=== PATIENT | male | born 1970 | race Caucasian/White ===

== ENCOUNTER 2017-06-27 16:50 | Emergency (ER) | payer BC, SELFPAY | END 2017-06-27 18:47 | disposition home or self-care (01) | PROVIDERS: Emergency Provider Nurse Practitioner Family; Family Provider Internal Medicine; Visit Provider Nurse Practitioner Family | DX: G43.709 Chronic migraine without aura, not intractable, without status migrainosus (principal) | CPT/HCPCS: 96372; 99202 ==

== ENCOUNTER 2017-07-30 08:15 | Outpatient (RCR) | payer BC, SELFPAY ==
--- NOTE | 2017-07-30 09:33 | HMH.PTOPEV ---
Rehab Outpatient Evaluation Rehab OP Evaluation Start: 07/30/17 09:21 Freq: Status: Active Protocol: Document 07/30/17 09:22 RUDI (Rec: 07/30/17 09:33 PHORELSY [id number]) Electronically Signed By Josue Quiroz, PT 07/30/17 09:22 Outpatient Therapy Subjective History Subjective History Pt presents with c/o pain in right side low back x ~ 1 wk. He reports, I slipped a little bit on some ice while I was turning, but I didn't fall and it didn't start to hurt until later that day. Pt c/o difficulty with transfers from supine to sit and reports increased pain with any mobility. He reports prior cervical spine fusion as only significant PMH. Chief Complaint Pain Symptom Type Ache Throb Sharp Burning Symptoms Relieved By Rest/Positioning Symptoms Aggravated By Bending/Stooping Twisting Walking Prior Functional Limitations None Current Functional Limitations Sleeping Walking Bending/Stooping Symptom Description Constant but Variable Level of pain today (0-10) 2 Pain scale - at its worst (0-10) 10 Lumbopelvic Eval Gait Observation General Gait Pattern Observation Antalgic Gait Range of Motion Lumbar Spine Active Flexion Range of 0-35 Motion (degrees) Lumbar Spine Active Extension Range of 0-15 Motion (degrees) Left Lumbar Spine Lateral Flexion Active 0-20 Range of Motion (degrees) Right Lumbar Spine Lateral Flexion 0-15 Active Range of Motion (degrees) Lumbar Spine ROM Limitations Soft Tissue Tightness Pain Manual Muscle Test Bilateral Knee Extension Strength Grade 5 Normal Knee Flexion Strength Grade 5 Normal Hip Flexion Strength Grade 5 Normal Hip Abduction Strength Grade 5 Normal Hip Adduction Strength Grade 5 Normal Hip External Rotation Strength Grade 5 Normal Hip Internal Rotation Strength Grade 5 Normal Hip Extension Strength Grade 5 Normal Extensor Hallucis Longus Strength Grade 5 Normal Ankle Dorsiflexion Strength Grade 5 Normal Gastronemius/Soleus Strength Grade 5 Normal DTR Rt Patellar 2+ Lt Patellar 2+ Rt Gastroc/Soleus
== END 2017-07-30 08:16 | disposition home or self-care (01) ==
LOC: PT 08:15
PROVIDERS: Family Provider Internal Medicine; PCP Internal Medicine; Visit Provider Internal Medicine
DX: M54.41 Lumbago with sciatica, right side (principal)
CPT/HCPCS: 97010; 97014; 97035; 97110; G0283

== ENCOUNTER 2017-08-05 16:48 | Emergency (ER) | payer BC, SELFPAY ==
[2017-08-05 17:03] VITALS: BP 126/63; PULSE 87; RESP 18; TEMP 36.7; O2SAT 96; BMI 36.6
[2017-08-05 17:18] VITALS: BP 137/75; PULSE 91; RESP 18; TEMP 36.6; O2SAT 100; BMI 27.0
--- NOTE | 2017-08-05 17:27 | HMH.EDUTC ---
[facility] [place] Disposition Clinical Impression: Mild dehydration Disposition: Home, Self-Care Condition on Discharge: Good Instructions: Influenza, DI for Nausea -- Adult, DI for Dehydration -- Adult Additional Instructions: ? Lots of rest ? Increase Fluids water, Gatorade, powerade, pedialyte,if /toddler/child ? Alternate Tylenol and / or ibuprofen as discussed for fever, aches, chills x 24 hours without medication for symptoms ? Follow up IMMEDIATELY for new or worsening Symptoms OR no noticeable improvement over the next 48-72 hours, 911 for difficulty or breathing ? You area contagious until no fever, aches, chills for 24 hours with medication for symptoms Prescriptions: Promethazine/Dextromethorphan [Promethazine-Dm Syrup] 5 ml PO Q4H PRN #200 syrup PRN Reason: Cough Referrals: Soren Elder [Primary Care Provider] - Time of Disposition: 18:26 Medical Decision Making - Medical Records Medical records reviewed: Yes: I reviewed the patient's medical records. Vital Signs: 08/05/17 17:03 08/05/17 17:18 Temperature 98.1 F 97.9 F Temperature Source Temporal Artery Scan Temporal Artery Scan Pulse Rate [Right Brachial] 87 91 H Respiratory Rate 18 18 Blood Pressure [Right Arm] 126/63 137/75 Blood Pressure Mean [Right Arm] 84 95 Blood Pressure Source [Right Arm] Automatic Cuff Automatic Cuff Blood Pressure Position [Right Arm] Sitting Sitting 02 Sat by Pulse Oximetry 96 100 Oxygen Delivery Method Room Air Room Air Orders (Tests/Meds): ED MEDICATIONS Generic Name Dose Route Start Last Admin Trade Name Freq PRN Reason Stop Dose Admin Sodium Chloride 500 mls @ 500 mls/hr 08/05/17 17:45 08/05/17 17:54 Sod Chloride 0.9% 500ml Bag IV 08/05/17 18:44 500 mls/hr .Q1H RACHAEL Administration - Spenser Inquiry Pt receiving controlled substance: No Spenser was queried for this patient: No - Reevaluation(s) Time: 18:21 (Patient bolus of NS almost complete Patient state that he feels alot better State that he would like something for cough and feels like he is ready to go home) Reevaluation #1: Mucous membranes moist, now able to urinate without difficulty patient ready to be discharged home [facility] [place] HPI - General Stated complaint: Has Flu/Has not Urinated Mode of Arrival: Ambulatory Source of Information: Patient Limitations: No Limitations Description of Symptoms (Recalled from Triage Doc. by RN): DX WITH FLU THURSDAY, STATES IS NOT URINATING HEENT Symptoms (Recalled from RN notes): Yes Resp Symptoms (Recalled from RN notes): No Skin Symptoms (Recalled from RN notes): No MS Symptoms (Recalled from RN notes): No Functional Status (Recalled from RN notes): N - History of Present Illness Provider Complaint: Patient state that he was diagnosed with the flu on Thursday State that he has been drinking fluids but not urinating like he thinks he should be States that he called his family doctor and they told him to come in and get some IV fluids to see if that would help him to feel better - Related Data Previous Rx's Medication Instructions Recorded Promethazine/Dextromethorphan 5 ml PO Q4H PRN #200 syrup 08/05/17 [Promethazine-Dm Syrup] Allergies Allergy/AdvReac Type Severity Reaction Status Date / Time No Known Allergies Allergy Verified 08/05/17 17:22 - Worker's Comp Is this a Worker's Comp case?: No [facility] History I have reviewed the patient's past medical history: Yes - *Social History Smoking Status: Former smoker Alcohol Intake: never - Psychiatric History Expresses thoughts of harming self/others: None Suicide Plan Description: No Plan ROS Obtained: Yes All systems reviewed & no additional complaints Physical Exam - General General appearance: alert, in no apparent distress - ENT ENT exam: Present: normal exam, normal oropharynx, mucous membranes moist, TM's normal bilaterally, normal external ear exam - Respiratory Respiratory exam: Present: normal lung sounds b
--- NOTE | 2017-08-05 17:30 | ED_ITS ---
[facility] [place] Disposition Clinical Impression: Mild dehydration Disposition: Home, Self-Care Condition on Discharge: Good Instructions: Influenza, DI for Nausea -- Adult, DI for Dehydration -- Adult Additional Instructions: ? Lots of rest ? Increase Fluids water, Gatorade, powerade, pedialyte,if /toddler/child ? Alternate Tylenol and / or ibuprofen as discussed for fever, aches, chills x 24 hours without medication for symptoms ? Follow up IMMEDIATELY for new or worsening Symptoms OR no noticeable improvement over the next 48-72 hours, 911 for difficulty or breathing ? You area contagious until no fever, aches, chills for 24 hours with medication for symptoms Prescriptions: Promethazine/Dextromethorphan [Promethazine-Dm Syrup] 5 ml PO Q4H PRN #200 syrup PRN Reason: Cough Referrals: Soren Elder [Primary Care Provider] - Time of Disposition: 18:26 Medical Decision Making - Medical Records Medical records reviewed: Yes: I reviewed the patient's medical records. Vital Signs: 08/05/17 17:03 08/05/17 17:18 Temperature 98.1 F 97.9 F Temperature Source Temporal Artery Scan Temporal Artery Scan Pulse Rate [Right Brachial] 87 91 H Respiratory Rate 18 18 Blood Pressure [Right Arm] 126/63 137/75 Blood Pressure Mean [Right Arm] 84 95 Blood Pressure Source [Right Arm] Automatic Cuff Automatic Cuff Blood Pressure Position [Right Arm] Sitting Sitting 02 Sat by Pulse Oximetry 96 100 Oxygen Delivery Method Room Air Room Air Orders (Tests/Meds): ED MEDICATIONS Generic Name Dose Route Start Last Admin Trade Name Freq PRN Reason Stop Dose Admin Sodium Chloride 500 mls @ 500 mls/hr 08/05/17 17:45 08/05/17 17:54 Sod Chloride 0.9% 500ml Bag IV 08/05/17 18:44 500 mls/hr .Q1H RACHAEL Administration - Spenser Inquiry Pt receiving controlled substance: No Spenser was queried for this patient: No - Reevaluation(s) Time: 18:21 (Patient bolus of NS almost complete Patient state that he feels alot better State that he would like something for cough and feels like he is ready to go home) Reevaluation #1: Mucous membranes moist, now able to urinate without difficulty patient ready to be discharged home [facility] [place] HPI - General Stated complaint: Has Flu/Has not Urinated Mode of Arrival: Ambulatory Source of Information: Patient Limitations: No Limitations Description of Symptoms (Recalled from Triage Doc. by RN): DX WITH FLU THURSDAY, STATES IS NOT URINATING HEENT Symptoms (Recalled from RN notes): Yes Resp Symptoms (Recalled from RN notes): No Skin Symptoms (Recalled from RN notes): No MS Symptoms (Recalled from RN notes): No Functional Status (Recalled from RN notes): N - History of Present Illness Provider Complaint: Patient state that he was diagnosed with the flu on Thursday State that he has been drinking fluids but not urinating like he thinks he should be States that he called his family doctor and they told him to come in and get some IV fluids to see if that would help him to feel better - Related Data Previous Rx's Medication Instructions Recorded Promethazine/Dextromethorphan 5 ml PO Q4H PRN #200 syrup 08/05/17 [Promethazine-Dm Syrup] Allergies Allergy/AdvReac Type Severity Reaction Status Date / Time No Known Allergies Allergy Verified 08/05/17 17:22 - Worker's Comp Is t
== END 2017-08-05 18:39 | disposition home or self-care (01) ==
LOC: ER 17:01 → UTC 17:09 → ER 17:09 → UTC 17:09
PROVIDERS: Emergency Provider Nurse Practitioner; Family Provider Internal Medicine; PCP Internal Medicine
DX: E86.0 Dehydration (principal); J10.1 Influenza due to other identified influenza virus with other respiratory manifestations
CPT/HCPCS: 99202

== ENCOUNTER → 2019-11-15 15:35 | Outpatient (CLI) | payer BC, SELFPAY ==
--- NOTE | 2019-11-15 15:41 | XR_ITS ---
PROCEDURE: XR HAND RT MIN 3V CLINICAL INDICATION: RIGHT WRIST AND HAND PAIN Posttraumatic pain COMPARISON: No exams were available for comparison FINDINGS: No fracture or dislocation. No lytic or blastic change. There is normal mineralization. The joint spaces are well-preserved. No significant degenerative/arthritic changes. No erosive changes evident. Other findings:There does appear to be a nondisplaced triquetrum avulsion fracture of wrist IMPRESSION: Negative hand. Nondisplaced triquetrum avulsion fracture Dictated by: Jan Hanna MD 11/15/2019 17:06 Electronically signed by Jan Hanna MD in [place] 11/15/2019 17:06
--- NOTE | 2019-11-15 15:41 | XR_ITS ---
PROCEDURE: XR WRIST RT MIN 3V CLINICAL INDICATION: RIGHT WRIST AND HAND PAIN Posttraumatic COMPARISON: No exams were available for comparison FINDINGS: There is a small calcific density along the dorsal mid aspect the wrist suspicious for an avulsion of the triquetrum which is nondisplaced. IMPRESSION: Nondisplaced triquetrum avulsion fracture Dictated by: Jan Hanna MD 11/15/2019 17:05 Electronically signed by Jna Hanna MD in [place] 11/15/2019 17:05
== END ==
PROVIDERS: PCP Internal Medicine; Visit Provider Internal Medicine
DX: M25.531 Pain in right wrist (principal)
CPT/HCPCS: 73110; 73130

== ENCOUNTER 2020-03-13 16:35 | Emergency (ER) | payer BC, SELFPAY ==
[2020-03-13 17:06] VITALS: BP 128/88; PULSE 71; RESP 20; TEMP 36.9; O2SAT 97; BMI 27.7
[2020-03-13 17:14] LABS: UTC Influenza A Antigen Negative (Negative); UTC Strep Screen (Rapid) Negative (Negative)
[2020-03-13 17:15] LABS: UTC Influenza B Antigen Negative (Negative)
--- NOTE | 2020-03-13 17:24 | HMH.EDUTC ---
[facility] [place] Disposition Clinical Impression: Viral syndrome, Bronchitis Disposition: Home, Self-Care Condition on Discharge: Good Instructions: DI for Viral Syndrome, Preventing the Spread of Coronavirus Discharge Instructions Additional Instructions: Drink plenty of fluids. Take tylenol or ibuprofen for pain or fever. Take the medications as directed. Follow up with your regular doctor. GO TO THE ER FOR ANY WORSENING SYMPTOMS FOLLOW THE DIRECTIONS ON THE COVID-19 HAND OUT THAT WE GAVE YOU REGARDING SELF-ISOLATION UNTIL YOU KNOW YOUR COVID-19 RESULTS Prescriptions: Azithromycin [Z-Ricardo 250mg Tab*] 250 mg PO UD DOSE PK #6 tab Transmission Status: Received by [facility] Referrals: Soren Elder [Primary Care Provider] - Forms: Work/School Release Time of Disposition: 17:27 Medical Decision Making - Medical Records Medical records reviewed: No: I reviewed the patient's medical records. - Spenser Inquiry Pt receiving controlled substance: No Vital Signs: 03/13/20 17:06 03/13/20 17:33 Temperature 98.4 F 98.4 F Temperature Source Oral Pulse Rate 71 Pulse Rate [Right Brachial] 71 Respiratory Rate 20 20 Blood Pressure 128/88 Blood Pressure [Right Arm] 128/88 Blood Pressure Mean [Right Arm] 101 Blood Pressure Source [Right Arm] Automatic Cuff Blood Pressure Position [Right Arm] Sitting 02 Sat by Pulse Oximetry 97 Oxygen Delivery Method Room Air - Lab Data Lab Results 03/13/20 16:50: Influenza Type A Ag Negative, Influenza Type B Ag Negative 03/13/20 16:50: Strep Scn Rapid Clinic Negative Orders (Tests/Meds): ORDERS Category Date Time Status Covid-19 Nasal PCR Sendout [facility] Stat Lab 03/13/20 17:30 Received Strep Screen Confirmation Stat Micro 03/13/20 16:50 Received [facility] [place] HPI - General Stated complaint: V/D, cough, body aches, chills, sweats, RODRIGUEZ Time Seen by Provider: 03/13/20 17:10 Mode of Arrival: Ambulatory Source of Information: Patient Limitations: No Limitations Description of Symptoms (Recalled from Triage Doc. by RN): PATIENT C/O BODY ACHES, CHILLS, BACK PAIN, COUGH, HEADACHE, NASAL DRAINAGE, AND N/V/D SINCE THURSDAY NIGHT HEENT Symptoms (Recalled from RN notes): Yes Resp Symptoms (Recalled from RN notes): Yes Skin Symptoms (Recalled from RN notes): No MS Symptoms (Recalled from RN notes): No Functional Status (Recalled from RN notes): WNL - History of Present Illness Provider Complaint: He c/o 3 days of feeling bad, dry cough, chilling and body aches. He has been exposed to COVID-19 both at work and possibly at home. - Related Data Previous Rx's Medication Instructions Recorded Azithromycin [Z-Ricardo 250mg Tab*] 250 mg PO UD DOSE PK #6 tab 03/13/20 Allergies Allergy/AdvReac Type Severity Reaction Status Date / Time No Known Allergies Allergy Verified 09/24/19 14:50 - Worker's Comp Is this a Worker's Comp case?: No [facility] History - Hepatitis A Screen Drug use history?: No High risk sexual behaviors?: No History of sexually transmitted infection?: No Currently employed?: No 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 No Do you have indoor plumbing?: Yes Do you have electricity?: Yes Attestation statement:: This patient has been screened for Hepatitis A risk factors. I have reviewed the patient's past medical history: Yes Medical History: Reports:: Anxiety, Depression, Kidney Stones (Patient has a history of multiple stones in the past), Migraine Denies:: Cancer, Diabetes Mellitus Type 1, Diabetes Mellitus Type 2, MRSA Other Surgeries: Yes: Other Amputation: No Comment: spine - Social History Smoking Status: Current every day smoker Tobacco Type: smokeless tobacco Alcohol Intake: never Occupational Status: other - Psychiatric History Pschychiatric History:: Reports:: Anxiety, Depression Family Hx:: No significant family history ROS Obtained: Yes All systems reviewed & no additional complaints - Constitutional Constitutional: Reports chill
[2020-03-13 17:33] VITALS: BP 128/88; PULSE 71; RESP 20; TEMP 36.9; O2SAT 97
[2020-03-15 13:59] LABS: Covid-19 Nasal PCR Sendout Lex NOT DETECTED
== END 2020-03-13 17:35 | disposition home or self-care (01) ==
PROVIDERS: Emergency Provider Nurse Practitioner Family; PCP Internal Medicine
DX: B34.9 Viral infection, unspecified (principal); J20.9 Acute bronchitis, unspecified; Z20.828 Contact with and (suspected) exposure to other viral communicable diseases; Z87.442 Personal history of urinary calculi; F41.8 Other specified anxiety disorders; G43.709 Chronic migraine without aura, not intractable, without status migrainosus; F17.290 Nicotine dependence, other tobacco product, uncomplicated
CPT/HCPCS: 87804; 87880; 99202; U0004

== ENCOUNTER → 2020-05-18 15:37 | Outpatient (CLI) | payer BC, SELFPAY ==
--- NOTE | 2020-05-18 15:41 | XR_ITS ---
PROCEDURE: XR ELBOW RT MIN 3V CLINICAL INDICATION: RT ELBOW PAIN COMPARISON: CR ELBL3 ELBOW-LT-3 VIEWS from 01/02/2013 FINDINGS: No fracture or dislocation. No lytic or blastic change. There is normal mineralization. The joint spaces are well-preserved. No significant degenerative/arthritic changes. No erosive changes evident. Other findings:None. IMPRESSION: No acute findings. Dictated by: Jan Hanna MD 05/18/2020 15:52 Jan Hanna MD in [place] 05/18/2020 15:52
== END ==
PROVIDERS: PCP Internal Medicine; Visit Provider Internal Medicine
DX: M25.522 Pain in left elbow (principal)
CPT/HCPCS: 73080

== ENCOUNTER 2020-06-02 19:35 | Emergency (ER) | payer BC, SELFPAY ==
[2020-06-02 20:30] VITALS: BP 119/77; PULSE 65; RESP 18; TEMP 36.7; O2SAT 98; BMI 27.8
--- NOTE | 2020-06-02 20:35 | HMH.EDUTC ---
[facility] [place] Impression: Exposure to COVID-19 virus, Encounter for laboratory testing for COVID-19 virus Disposition: Home, Self-Care Condition on Discharge: Good Instructions: Preventing the Spread of Coronavirus Discharge Instructions, DI for Fever (Symptom) -- Adult Additional Instructions: *Monitor Temp, Over the counter Motrin or Tylenol as directed/as needed Tylenol every 4 hours and Motrin every 6 hours (as long as your family doctor has told you that you can take it) for fever or pain. and straight to ER if unable to lower temp less than 101.0 after medication given *Warm salt water gargles may help to soothe the throat *Throat Lozenges *Warm fluids like tea with honey may help to soothe the throat *Sleep elevated *Humidifier/Vaporizer Follow up IMMEDIATELY for new or worsening symptoms or no Noticeable improvement over the next 48-72 hours. 911 for difficulty breathing or swallowing You was tested for today for COVID19 your test result should be back in the next 24-48 hours, you may call to the [facility] later today or tomorrow to see if your test results are back and the result [phone] [facility] hours are 9am-9pm You was given a handout with instructions for Self Quarantine and Self isolation for while you wait on test results and what to do if they are positive If you are positive the Health Dept will be contacting you also Referrals: Soren Elder [Primary Care Provider] - As needed Forms: Work/School Release Time of Disposition: 20:39 Medical Decision Making - Spenser Inquiry Pt receiving controlled substance: No Spenser was queried for this patient: No Vital Signs: 06/02/20 20:30 Temperature 98.0 F Temperature Source Oral Pulse Rate [Radial] 65 Respiratory Rate 18 Blood Pressure [Right Arm] 119/77 Blood Pressure Mean [Right Arm] 91 Blood Pressure Source [Right Arm] Automatic Cuff Blood Pressure Position [Right Arm] Sitting 02 Sat by Pulse Oximetry 98 Oxygen Delivery Method Room Air Orders (Tests/Meds): ORDERS Category Date Time Status Covid-19 Nasal PCR ([facility]) Routine Lab 06/02/20 20:15 Received [facility] [place] - General Stated complaint: cOVID TEST wEAKNESS,bODY PAIN Time Seen by Provider: 06/02/20 20:35 Mode of Arrival: Ambulatory Source of Information: Patient Limitations: No Limitations Description of Symptoms (Recalled from Triage Doc. by RN): WEAK JOINT PAIN, COVID EXPOSURE HEENT Symptoms (Recalled from RN notes): Yes Resp Symptoms (Recalled from RN notes): No Skin Symptoms (Recalled from RN notes): No MS Symptoms (Recalled from RN notes): No Functional Status (Recalled from RN notes): WNL - History of Present Illness Provider Complaint: Patient state that he was recently exposed to COVID by his father and his father in laws girlfriend State that he has been in quarnatine and he just recently got out but for last couple of days he has been having body aches, chills, and not feeling well State that he came in to get tested for COVID - Related Data Previous Rx's Medication Instructions Recorded Azithromycin [Z-Ricardo 250mg Tab*] 250 mg PO UD DOSE PK #6 tab 03/13/20 Allergies Allergy/AdvReac Type Severity Reaction Status Date / Time No Known Allergies Allergy Verified 09/24/19 14:50 - Worker's Comp Is this a Worker's Comp case?: No [facility] History - Hepatitis A Screen Drug use history?: No High risk sexual behaviors?: No History of sexually transmitted infection?: No Currently employed?: No 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 No Do you have indoor plumbing?: Yes Do you have electricity?: Yes Attestation statement:: This patient has been screened for Hepatitis A risk factors. I have reviewed the patient's past medical history: Yes Medical History: Reports:: Anxiety, Depression, Kidney Stones (Patient has a history of multiple stones in the past), Migraine Denies:: Cancer, Diabetes Mellitus Type 1, Diabetes Mellitus Type 2, MRSA Other Surgeries: Yes: Other Amputatio
[2020-06-02 21:02] VITALS: BP 119/77; PULSE 65; RESP 18; TEMP 36.7; O2SAT 98
--- NOTE | 2020-06-02 23:34 | PC.NURSE ---
+ COVID results reported
--- NOTE | 2020-06-03 10:25 | PC.NURSE ---
Attempted to call patient regarding covid results. No answer, message left.
--- NOTE | 2020-06-03 12:02 | PC.NURSE ---
PT NOTIFIED OF POSITIVE COVID RESULTS
== END 2020-06-02 21:03 | disposition home or self-care (01) ==
PROVIDERS: Emergency Provider Nurse Practitioner; PCP Internal Medicine
DX: U07.1 COVID-19 (principal); F41.8 Other specified anxiety disorders; Z87.442 Personal history of urinary calculi
CPT/HCPCS: 99201; U0003

== ENCOUNTER 2021-01-07 16:54 | Emergency (ER) | payer BC, SELFPAY ==
[2021-01-07 16:55] VITALS: BP 136/89; PULSE 61; RESP 19; TEMP 36.5; O2SAT 99; BMI 27.1
--- NOTE | 2021-01-07 17:17 | HMH.EDUTC ---
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 and take as directed if your headache comes back Return if needed Straight to ER if any life threatening symptoms or worse headache of your life Prescriptions: Ondansetron [Zofran 4mg ODT] 4 mg PO TIDP PRN #6 tab PRN Reason: Nausea Prescription Printed Referrals: Soren Elder [Primary Care Provider] - As needed Time of Disposition: 17:44 Medical Decision Making - Spenser Inquiry Pt receiving controlled substance: No Spenser was queried for this patient: No Vital Signs: 01/07/21 16:55 Temperature 97.7 F Temperature Source Oral Pulse Rate [Right Brachial] 61 Respiratory Rate 19 Blood Pressure [Right Arm] 136/89 Blood Pressure Mean [Right Arm] 104 Blood Pressure Source [Right Arm] Automatic Cuff Blood Pressure Position [Right Arm] Sitting 02 Sat by Pulse Oximetry 99 Oxygen Delivery Method Room Air Orders (Tests/Meds): ED MEDICATIONS Discontinued Medications Generic Name Dose Route Start Last Admin Trade Name Freq PRN Reason Stop Dose Admin Diphenhydramine HCl 25 mg 01/07/21 17:21 Diphenhydramine 50mg/Ml Vial IM 01/07/21 17:22 ONCE ONE Ketorolac Tromethamine 60 mg 01/07/21 17:21 Ketorolac 60mg/2ml Vial IM 01/07/21 17:22 ONCE ONE Ondansetron HCl 4 mg 01/07/21 17:21 Ondansetron 4mg Odt SL 01/07/21 17:22 ONCE ONE Medical Decision Narrative: Patient reports that migraine is better and starting to ease off patient dc'd home with family [facility] [place] HPI - General Stated complaint: RODRIGUEZ Time Seen by Provider: 01/07/21 17:17 Mode of Arrival: Ambulatory Source of Information: Patient Limitations: No Limitations Description of Symptoms (Recalled from Triage Doc. by RN): PATIENT C/O MIGRAINE WITH VOMITING X 2 DAYS HEENT Symptoms (Recalled from RN notes): Yes Resp Symptoms (Recalled from RN notes): No Skin Symptoms (Recalled from RN notes): No MS Symptoms (Recalled from RN notes): No Functional Status (Recalled from RN notes): WNL - History of Present Illness Provider Complaint: Patient states that he takes migraine medication when he gets a Migraine State that he called his PCP to get them refilled but hasnt picked them up yet and last took the last he had of his medication on Thursday when he ran out States that he has had a migraine from the last couple of days but the pharmacy has been closed due to the holiday for 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 refill given by his PCP State that he came in today to get the migraine treatment like he had before to help - Related Data Previous Rx's Medication Instructions Recorded Ondansetron [Zofran 4mg ODT] 4 mg PO TIDP PRN #6 tab 01/07/21 Allergies Allergy/AdvReac Type Severity Reaction Status Date / Time No Known Allergies Allergy Verified 07/09/20 12:52 - Worker's Comp Is this a Worker's Comp case?: No [facility] History - Hepatitis A Screen Drug use history?: No High risk sexual behaviors?: No History of sexually transmitted infection?: No Currently employed?: No 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 No Do you have indoor plumbing?: Yes Do you have electricity?: Yes Attestation statement:: This patient has been screened for Hepatitis A risk factors. I have reviewed the patient's past medical history: Yes Medical History: Reports:: Anxiety, Depression, Kidney Stones (Patient has a history of multiple stones in the past), Migraine Denies:: Cancer, Diabetes Mellitus Type 1, Diabetes Mellitus Type 2, MRSA Other S
[2021-01-07 17:48] VITALS: BP 136/89; PULSE 61; RESP 19; TEMP 36.5; O2SAT 99
== END 2021-01-07 17:50 | disposition home or self-care (01) ==
PROVIDERS: Emergency Provider Nurse Practitioner; PCP Internal Medicine
DX: G43.909 Migraine, unspecified, not intractable, without status migrainosus (principal); F41.8 Other specified anxiety disorders; Z87.442 Personal history of urinary calculi
CPT/HCPCS: 96372; 99202; G0463

== ENCOUNTER → 2021-02-12 14:58 | Outpatient (CLI) | payer BC, SELFPAY ==
--- NOTE | 2021-02-12 15:04 | XR_ITS ---
PROCEDURE: XR KNEE LT 3V CLINICAL INDICATION: BILATERAL KNEE PAIN COMPARISON: CR XR KNEE RT 3V from 02/12/2021 FINDINGS: No fracture or dislocation. No lytic or blastic change. There is normal mineralization. There are minimal osteoarthritic changes at the patellofemoral joint with minimal spurring. The joint spaces are well preserved. Other findings:None. IMPRESSION: Minimal osteoarthritic change Dictated by: Jan Hanna MD 02/12/2021 16:19 Jan Hanna MD in [place] 02/12/2021 16:19
--- NOTE | 2021-02-12 15:04 | XR_ITS ---
PROCEDURE: XR KNEE RT 3V CLINICAL INDICATION: BILATERAL KNEE PAIN COMPARISON: No exams were available for comparison FINDINGS: No fracture or dislocation. No lytic or blastic change. There is normal mineralization. Minimal osteoarthritic change patellofemoral joint with minimal spurring. The joint spaces are well preserved.. Other findings:None. IMPRESSION: Minimal osteoarthritic change Dictated by: Jan Hanna MD 02/12/2021 16:18 Jan Hanna MD in [place] 02/12/2021 16:18
== END ==
LOC: RAD 15:01
PROVIDERS: PCP Internal Medicine; Visit Provider Internal Medicine
DX: M25.562 Pain in left knee (principal); M25.561 Pain in right knee
CPT/HCPCS: 73562

== ENCOUNTER 2021-02-19 16:45 | Emergency (ER) | payer BC, SELFPAY ==
[2021-02-19 17:40] VITALS: BP 121/77; PULSE 80; RESP 21; TEMP 37.4; O2SAT 98; BMI 31.5
--- NOTE | 2021-02-19 18:09 | HMH.EDUTC ---
[facility] [place] [facility] [place] Clinical Impression: Encounter for laboratory testing for COVID-19 virus Nausea & vomiting Qualifiers: Vomiting type: unspecified Vomiting Intractability: unspecified Qualified Code(s): R11.2 - Nausea with vomiting, unspecified Disposition: Home, Self-Care Condition on Discharge: Good Instructions: DI for COVID-19 (Suspected or Confirmed ), Coronavirus Disease 2019, Preventing the Spread of Coronavirus Discharge Instructions, Nausea and Vomiting-Adult, DI for Cough -- Adult Additional Instructions: *Monitor Temp, Over the counter Motrin or Tylenol as directed/as needed Tylenol every 4 hours and Motrin every 6 hours (as long as your family doctor has told you that you can take it) for fever or pain. and straight to ER if unable to lower temp less than 101.0 after medication given *Warm salt water gargles may help to soothe the throat *Throat Lozenges *Warm fluids like tea with honey may help to soothe the throat *Sleep elevated *Humidifier/Vaporizer Drink extra fluids with and between meals. If you have difficulty drinking, try very small amounts of water or suck on ice chips. ? Avoid fruit juices, as these do not replace minerals and can actually increase diarrhea. ? Children and adults can use sports drinks to replenish electrolytes. Younger children and infants should use products formulated for children, like oral rehydration solutions. ? Eat food in small amounts and let your stomach recover. ? Get lots of rest. You may feel tired or weak. ? No greasy or fried foods for the next 24-48 hours BRAT diet Bananas Rice Apples and [place] ? Make sure to drink plenty of liquids ? Return if needed ? Straight to ER if any life threatening symptoms ? Zofran as prescribed ? Follow up with family doctor in the next 48-72 hours if no improvement or any worsening of symptoms Follow up IMMEDIATELY for new or worsening symptoms or no Noticeable improvement over the next 48-72 hours. 911 for difficulty breathing or swallowing You were tested for today for COVID19 your test result should be back in the next 24-48 hours, you may call to the [facility] to see if your test results are back in the next 48 hours [phone] [facility] hours are 9am-9pm You was given a handout with instructions for Self Quarantine and Self isolation for while you wait on test results and what to do if they are positive If you are positive the Health Dept will be contacting you also Make sure to take your Vitamins Vit. C Vit D and Zinc if you can take them Prescriptions: Benzonatate [Tessalon Perle 100mg Cap*] 100 mg PO TID PRN #15 cap PRN Reason: Nausea Transmission Status: Pending to [facility] Ondansetron [Zofran 4mg ODT] 4 mg PO TIDP PRN #12 tab PRN Reason: Nausea Transmission Status: Pending to [facility] Referrals: Soren Elder [Primary Care Provider] - As needed Forms: Work/School Release Medical Decision Making - Spenser Inquiry Pt receiving controlled substance: No Spenser was queried for this patient: No Vital Signs: 02/19/21 17:40 Temperature 99.4 F Temperature Source Oral Pulse Rate [Right Brachial] 80 Respiratory Rate 21 Blood Pressure [Right Arm] 121/77 Blood Pressure Mean [Right Arm] 91 Blood Pressure Source [Right Arm] Automatic Cuff Blood Pressure Position [Right Arm] Sitting 02 Sat by Pulse Oximetry 98 Oxygen Delivery Method Room Air Orders (Tests/Meds): ORDERS Category Date Time Status Full Resp Panel w/COVID ([facility]) Routine Lab 02/19/21 17:51 Ordered Medical Decision Narrative: Patient states that he has taken Zofran in the past without reactions or complications [facility] [place] [facility] [place] - General Stated complaint: weak, cough,fever, loss of taste Time Seen by Provider: 02/19/21 18:09 Mode of Arrival: Ambulatory Source of Information: Patient Limitations: No Limitations Description of Symptoms (Recalled from Triage Doc. by RN): PATIENT C/O BODY ACHES, FEVER, COUGH, AND VOMITING HEENT Symptoms
[2021-02-19 18:15] VITALS: BP 121/77; PULSE 80; RESP 21; TEMP 37.4; O2SAT 98
[2021-02-19 18:30] LABS: Adenovirus,PCR Not Detected (NotDetected); Bordetella Pertussis Not Detected (NotDetected); Chlamydophila Pneumoniae, PCR Not Detected (NotDetected); Coronavirus 229E Not Detected (NotDetected); Coronavirus NL63 Not Detected (NotDetected); Coronavirus OC43 Not Detected (NotDetected); Coronovirus HKU1,PCR Not Detected (NotDetected); Human Metapneumovirus Not Detected (NotDetected); Influenza A, PCR Not Detected (NotDetected); Influenza AH1, 2009 Not Detected (NotDetected); Influenza AH1, PCR Not Detected (NotDetected); Influenza AH3,PCR Not Detected (NotDetected); Influenza B, PCR Not Detected (NotDetected); Mycoplasma Pneumoniae, PCR Not Detected (NotDetected); Parainfluenza 1, PCR Not Detected (NotDetected); Parainfluenza 2, PCR Not Detected (NotDetected); Parainfluenza 3, PCR Not Detected (NotDetected); Parainfluenza 4, PCR Not Detected (NotDetected); Respiratory Syncytial Virus Not Detected (NotDetected); Rhinovirus/Enterovirus Not Detected (NotDetected)
[2021-02-20 09:20] LABS: Coronavirus 19, PCR Detected (NotDetected)
--- NOTE | 2021-02-20 13:21 | PC.NURSE ---
relayed positive covid results.
== END 2021-02-19 18:39 | disposition home or self-care (01) ==
PROVIDERS: Emergency Provider Nurse Practitioner; PCP Internal Medicine
DX: U07.1 COVID-19 (principal); F41.8 Other specified anxiety disorders; Z87.442 Personal history of urinary calculi
CPT/HCPCS: 87581; 87633; 87798; 99202; G0463

== ENCOUNTER 2021-03-04 16:32 | Emergency (ER) | payer BC, SELFPAY ==
[2021-03-04 16:32] VITALS: BP 122/81; PULSE 85; RESP 16; TEMP 36.8; O2SAT 98; BMI 23.6
[2021-03-04 17:25] VITALS: BP 122/81; PULSE 85; RESP 16; TEMP 36.8; O2SAT 98; BMI 23.6
--- NOTE | 2021-03-04 18:02 | HMH.EDUTC ---
[facility] – [place] Dis[place] Clinical Impression: Mild dehydration Disposition: Home, Self-Care Condition on Discharge: Good Instructions: DI for Vomiting -- Adult, Nausea and Vomiting-Adult, DI for COVID-19 (Suspected or Confirmed ) Additional Instructions: *Monitor Temp, Over the counter Motrin or Tylenol as directed/as needed Tylenol every 4 hours and Motrin every 6 hours (as long as your family doctor has told you that you can take it) for fever or pa-in. and straight to ER if unable to lower temp less than 101.0 after medication given Drink extra fluids with and between meals. If you have difficulty drinking, try very small amounts of water or suck on ice chips. ? Avoid fruit juices, as these do not replace minerals and can actually increase diarrhea. ? Children and adults can use sports drinks like Gatoraid or Poweraid to replenish electrolytes. Younger children and infants should use products formulated for children, like oral rehydration solutions. ? Eat food in small amounts and let your stomach recover. ? Get lots of rest. You may feel tired or weak. ? No greasy or fried foods for the next 24-48 hours BRAT diet Bananas Rice Apples and [place] ? Make sure to drink plenty of liquids ? Return if needed ? Straight to ER if any life threatening symptoms ? Zofran as prescribed ? Follow up with family doctor in the next 48-72 hours if no improvement or any worsening of symptoms Follow up IMMEDIATELY for new or worsening symptoms or no Noticeable improvement over the next 48-72 hours. 911 for difficulty breathing or swallowing Prescriptions: Ondansetron [Zofran 4mg ODT] 4 mg PO TIDP PRN #6 tab PRN Reason: Nausea Transmission Status: Sent to [facility] Referrals: Soren Elder [Primary Care Provider] - As needed Time of Disposition: 18:57 Medical Decision Making - Spenser Inquiry Pt receiving controlled substance: No Spenser was queried for this patient: No Vital Signs: 03/04/21 16:32 03/04/21 17:25 Temperature 98.3 F 98.3 F Temperature Source Oral Oral Pulse Rate [Right] 85 85 Respiratory Rate 16 16 Blood Pressure [Right Arm] 122/81 122/81 Blood Pressure Mean [Right Arm] 94 94 Blood Pressure Source [Right Arm] Automatic Cuff Blood Pressure Position [Right Arm] Sitting 02 Sat by Pulse Oximetry 98 98 Oxygen Delivery Method Room Air Room Air Orders (Tests/Meds): ED MEDICATIONS Generic Name Dose Route Start Last Admin Trade Name Leigh PRN Reason Stop Dose Admin Sodium Chloride 1,000 mls @ 999 mls/hr 03/04/21 18:15 03/04/21 18:05 Sod Chlor 0.9% 1000ml Bag IV 03/04/21 19:15 999 mls/hr .Q1H1M RACHAEL Administration Medical Decision Narrative: Patient states that he feels much better after fluids ready to go home drinking ok in the [place] with no vomiting [facility] – [place] [place] HPI - General Stated complaint: covid+ 15 days ago still has symptoms Time Seen by Provider: 03/04/21 18:02 Mode of Arrival: Ambulatory Source of Information: Patient Limitations: No Limitations Description of Symptoms (Recalled from Triage Doc. by RN): PATIENT TESTED POSITIVE FOR COVID ON 02/19. STATES HE IS STILL FEELING BAD, C/O HEADACHE AND WEAKNESS HEENT Symptoms (Recalled from RN notes): No Resp Symptoms (Recalled from RN notes): No Skin Symptoms (Recalled from RN notes): No MS Symptoms (Recalled from RN notes): No Functional Status (Recalled from RN notes): WNL - History of Present Illness Provider Complaint: Patient state that he had COVID about 2 weeks ago state that he is not longer having fever or any other symptoms But states that he has still had a little headache on and off and feels like he may be a little dehydrated and wanted to come in and get some fluids to help states that he has been drinking water but mouth feels dry and still having nausea on and off - Related Data Previous Rx's Medication Instructions Recorded Ondansetron [Zofran 4mg ODT] 4 mg PO TIDP PRN #6 tab 01/07/21 Benzonatate [Tessalon Perle 100
[2021-03-04 18:55] VITALS: BP 122/81; PULSE 85; RESP 16; TEMP 36.8; O2SAT 98
== END 2021-03-04 19:02 | disposition home or self-care (01) ==
PROVIDERS: Emergency Provider Nurse Practitioner; PCP Internal Medicine
DX: E86.0 Dehydration (principal); U07.1 COVID-19; F41.8 Other specified anxiety disorders
CPT/HCPCS: 96365; 99202; G0463

== ENCOUNTER → 2021-07-26 17:33 | Outpatient (CLI) | payer BC, SELFPAY | PROVIDERS: Visit Provider Nurse Practitioner | DX: U07.1 COVID-19 (principal) | CPT/HCPCS: C9803; U0003; U0005 ==

== ENCOUNTER → 2021-07-30 16:21 | Outpatient (CLI) | payer BC, SELFPAY | PROVIDERS: PCP Internal Medicine; Visit Provider Nurse Practitioner | DX: Z20.822 Contact with and (suspected) exposure to COVID-19 (principal) | CPT/HCPCS: C9803; U0003; U0005 ==

== ENCOUNTER 2021-08-25 09:07 | Emergency (ER) | payer BC, SELFPAY ==
[2021-08-25 09:25] VITALS: BP 130/85; PULSE 71; RESP 18; TEMP 37; O2SAT 96; BMI 26.4
[2021-08-25 09:48] LABS: UTC Strep Screen (Rapid) Positive (Negative)
--- NOTE | 2021-08-25 10:00 | HMH.EDUTC ---
[facility] [place] Clinical Impression: Strep throat Conjunctivitis Qualifiers: Conjunctivitis type: unspecified Laterality: right Qualified Code(s): H10.9 - Unspecified conjunctivitis Disposition: Home, Self-Care Condition on Discharge: Good Instructions: Strep Throat, Conjunctivitis, DI for Strep Throat Additional Instructions: *Monitor Temp, Over the counter Motrin or Tylenol as directed/as needed Tylenol every 4 hours and Motrin every 6 hours (as long as your family doctor has told you that you can take it) for fever or pain. and straight to ER if unable to lower temp less than 101.0 after medication given *Warm salt water gargles may help to soothe the throat *Throat Lozenges *Warm fluids like tea with honey may help to soothe the throat *Sleep elevated *Humidifier/Vaporizer *If you did not take Penicillin shot or was unable to, start taking antibiotic immediately and make sure that you take it for the FULL length of time although you should start to feel better in 24-48 hours *change toothbrush and toothpaste 24-48 hours after starting to take antibiotics so you do not reinfect yourself Monitor Temp. Tylenol and/or Ibuprofen as needed. ER if fever is no less than 101 despite alternating Tylenol and Ibuprofen * Encourage fluids, water, Gatorade, powerade, pedialyte if infant/toddler/or child *Cold fluids, popsicles and ice cream may feel good on his throat Follow up IMMEDIATELY for new or worsening symptoms or no Noticeable improvement over the next 48-72 hours. 911 for difficulty breathing or swallowing Prescriptions: Amoxicillin [Amoxicillin 875MG Tab] 875 mg PO Q12H #20 tab Transmission Status: Pending to [facility] Polymyxin B Sulf/Trimethoprim [Polytrim Eye Drops] 2 drops EYE-RIGHT Q6H 7 Days #10 ml Transmission Status: Pending to [facility] Referrals: Soren Elder [Primary Care Provider] - As needed Medical Decision Making - Spenser Inquiry Pt receiving controlled substance: No Spenser was queried for this patient: No Vital Signs: 08/25/21 09:25 Temperature 98.6 F Temperature Source Oral Pulse Rate [Right Brachial] 71 Respiratory Rate 18 Blood Pressure [Right Arm] 130/85 Blood Pressure Mean [Right Arm] 100 Blood Pressure Source [Right Arm] Automatic Cuff Blood Pressure Position [Right Arm] Sitting 02 Sat by Pulse Oximetry 96 Oxygen Delivery Method Room Air - Lab Data Lab results reviewed: Yes: I reviewed the patient's lab results. Lab Results 08/25/21 09:39: Strep Scn Rapid Clinic Positive A [facility] [place] - General Stated complaint: sore throat,eye pain,ear pain,congested Time Seen by Provider: 08/25/21 10:00 Mode of Arrival: Ambulatory Source of Information: Patient Limitations: No Limitations Description of Symptoms (Recalled from Triage Doc. by RN): PATIENT C/O HEADACHE, SORE THROAT, EAR ACHE, AND SWELLING/REDNESS TO EYE X 1 WEEK HEENT Symptoms (Recalled from RN notes): Yes Resp Symptoms (Recalled from RN notes): No Skin Symptoms (Recalled from RN notes): No MS Symptoms (Recalled from RN notes): No Functional Status (Recalled from RN notes): WNL - History of Present Illness Provider Complaint: Patient state that he has been having sore scratchy thorat and matting and drainage from his right eye and feels like he may have pink eye so he came in to get checked out - Related Data Previous Rx's Medication Instructions Recorded Amoxicillin [Amoxicillin 875MG 875 mg PO Q12H #20 tab 08/25/21 Tab] Polymyxin B Sulf/Trimethoprim 2 drops EYE-RIGHT Q6H 7 Days #10 ml 08/25/21 [Polytrim Eye Drops] Allergies Allergy/AdvReac Type Severity Reaction Status Date / Time No Known Allergies Allergy Verified 07/09/20 12:52 - Worker's Comp Is this a Worker's Comp case?: No [facility] [place] History - Hepatitis A Screen Drug use history?: No High risk sexual behaviors?: No History of sexually transmitted infection?: No Currently employed?: No 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
[2021-08-25 10:22] VITALS: BP 130/85; PULSE 71; RESP 18; TEMP 37; O2SAT 96
== END 2021-08-25 10:30 | disposition home or self-care (01) ==
PROVIDERS: Emergency Provider Nurse Practitioner; PCP Internal Medicine
DX: J02.0 Streptococcal pharyngitis (principal); H10.31 Unspecified acute conjunctivitis, right eye
CPT/HCPCS: 87880; 99202; 99212; 99213; G0463

== ENCOUNTER 2021-12-15 17:30 | Emergency (ER) | payer BC, SELFPAY ==
[2021-12-15 17:35] VITALS: BP 131/78; PULSE 60; RESP 19; TEMP 36.6; O2SAT 99; BMI 23.7
--- NOTE | 2021-12-15 17:54 | HMH.EDUTC ---
[facility] [place] Disposition Clinical Impression: Migraine Qualifiers: Migraine type: unspecified Status migrainosus presence: without status migrainosus Intractability: not intractable Qualified Code(s): G43.909 - Migraine, unspecified, not intractable, without status migrainosus Disposition: Home, Self-Care Condition on Discharge: Good Instructions: DI for Migraine, Migraine -- Adult Additional Instructions: Go home lay down and sleep off remainder of migraine Return if needed Straight to ER if any life threatening symptoms Referrals: Soren Elder MD [Primary Care Provider] - As needed Time of Disposition: 18:39 Medical Decision Making - Spenser Inquiry Pt receiving controlled substance: No Spenser was queried for this patient: No Vital Signs: 12/15/21 17:35 Temperature 97.9 F Temperature Source Oral Pulse Rate [Left Brachial] 60 Respiratory Rate 19 Blood Pressure [Left Arm] 131/78 Blood Pressure Mean [Left Arm] 95 Blood Pressure Source [Left Arm] Automatic Cuff Blood Pressure Position [Left Arm] Sitting 02 Sat by Pulse Oximetry 99 Oxygen Delivery Method Room Air Orders (Tests/Meds): ED MEDICATIONS Discontinued Medications Generic Name Dose Route Start Last Admin Trade Name Donellq PRN Reason Stop Dose Admin Diphenhydramine HCl 50 mg 12/15/21 18:06 12/15/21 18:30 Diphenhydramine 50mg/Ml Vial IM 12/15/21 18:07 50 mg ONCE ONE Administration Ketorolac Tromethamine 60 mg 12/15/21 18:06 12/15/21 18:30 Ketorolac 60mg/2ml Vial IM 12/15/21 18:07 60 mg ONCE ONE Administration Metoclopramide HCl 10 mg 12/15/21 18:06 12/15/21 18:30 Metoclopramide 10mg Tablet PO 12/15/21 18:07 10 mg ONCE ONE Administration [facility] [place] HPI - General Stated complaint: migraine Time Seen by Provider: 12/15/21 17:55 Mode of Arrival: Ambulatory Source of Information: Patient Limitations: No Limitations Description of Symptoms (Recalled from Triage Doc. by RN): PATIENT C/O MIGRAINE THAT STARTED THIS MORNING HEENT Symptoms (Recalled from RN notes): Yes Resp Symptoms (Recalled from RN notes): No Skin Symptoms (Recalled from RN notes): No MS Symptoms (Recalled from RN notes): No Functional Status (Recalled from RN notes): WNL - History of Present Illness Provider Complaint: Patient states that he has a history of migraine headaches and this morning he felt one coming on and has ran out of his migraine medication States that when these hits sometimes he has to come in and get some shots to make it stop Denies worse headache of his life state that it is like other headaches he has had in the past - Related Data Home Medications Medication Instructions Recorded Confirmed Codeine/Butalbital/ASA/Caffein 1 each PO Q4-6H 12/15/21 12/15/21 [Ascomp with Codeine Capsule] Allergies Allergy/AdvReac Type Severity Reaction Status Date / Time Penicillins Allergy Verified 12/15/21 17:43 - Worker's Comp Is this a Worker's Comp case?: No [facility] History - Hepatitis A Screen Attestation statement:: This patient has been screened for Hepatitis A risk factors. I have reviewed the patient's past medical history: Yes Medical History: Reports:: Anxiety, Depression, Kidney Stones (Patient has a history of multiple stones in the past), Migraine Denies:: Cancer, Diabetes Mellitus Type 1, Diabetes Mellitus Type 2, MRSA Other Surgeries: Yes: Other Amputation: No Comment: spine - Social History Smoking Status: Current every day smoker Tobacco Type: smokeless tobacco Alcohol Intake: never Occupational Status: other - Psychiatric History Pschychiatric History:: Reports:: Anxiety, Depression Family Hx:: No significant family history ROS Obtained: Yes All systems reviewed & no additional complaints, Yes Systems reviewed as appropriate & no additional complaints - Constitutional Constitutional: Reports system reviewed and no additional complaints, except as docu, Denies body ache, Denies chills, Denies f
[2021-12-15 18:38] VITALS: BP 131/78; PULSE 60; RESP 19; TEMP 36.6; O2SAT 99
== END 2021-12-15 18:45 | disposition home or self-care (01) ==
PROVIDERS: Emergency Provider Nurse Practitioner; PCP Internal Medicine
DX: G43.909 Migraine, unspecified, not intractable, without status migrainosus (principal)
CPT/HCPCS: 96372; 99212; G0463

== ENCOUNTER → 2021-12-27 14:00 | Outpatient (CLI) | payer BC, SELFPAY ==
[2021-12-27 14:22] LABS: Basophils # 0.1 K/mm3 (0-0.2); Basophils % 1.8 % (0.1-2.0); Eosinophils # 0.6 K/mm3 (0.0-0.4); Eosinophils % 7.9 % (0.1-12.0); Hematocrit 44.1 % (42.0-52.0); Hemoglobin 14.7 g/dL (14.1-18.0); Lymphocytes # 1.7 K/mm3 (0.7-4.5); Lymphocytes % 21.2 % (10-50); Mean Corpuscular HGB Conc 33.3 g/dL (31.8-35.4); Mean Corpuscular Hemoglobin 30.5 pg (27.0-31.2); Mean Corpuscular Volume 91.6 fl (80-94); Mean Platelet Volume 7.7 fl (7.4-10.4); Monocytes # 0.4 K/mm3 (0.1-1.0); Monocytes % 5.4 % (1.7-9.3); Neutrophils # 5.1 K/mm3 (1.8-7.8); Neutrophils % 63.8 % (37.0-80.0); Platelet Count 334 K/mm3 (142-424); Red Blood Count 4.81 M/mm3 (4.60-6.20); Red Cell Distribution Width 13.3 % (11.5-17.5)
[2021-12-27 14:24] LABS: Chloride 105 mmol/L (98-107)
[2021-12-27 14:25] LABS: Potassium 3.8 mmoL/L (3.5-5.1); Sodium 137 mmol/L (136-145)
[2021-12-27 14:27] LABS: Alanine Aminotransferase 26 U/L (12-78); Aspartate Amino Transferase 40 U/L (17-59); Blood Urea Nitrogen 16 mg/dl (9-20); Estimated Glomerular Filt Rate 103 ml/min (>60); GFR (African American) 124 ML/MIN (>60)
[2021-12-27 14:28] LABS: Albumin/Globulin Ratio 1.4 (1.1-1.8); Alkaline Phosphatase 109 U/L (38-126); Anion Gap 10.8 mEq/L (5-15); Bilirubin,Total 0.2 mg/dl (0.2-1.3); Calcium 8.3 mg/dl (8.4-10.2); Carbon Dioxide 25 mmol/L (22.0-30.0); Globulin 2.9 g/dL (1.3-3.2); Glucose 107 mg/dl (74-100); Total Protein,Serum 6.9 g/dl (6.3-8.2)
== END ==
PROVIDERS: PCP Internal Medicine; Visit Provider Internal Medicine
DX: T56.4X1A Toxic effect of copper and its compounds, accidental (unintentional), initial encounter (principal)
CPT/HCPCS: 36415; 80053; 85025

== ENCOUNTER 2022-01-14 11:52 | Emergency (ER) | payer BC, SELFPAY ==
[2022-01-14 12:50] VITALS: BP 112/80; PULSE 61; RESP 16; TEMP 36.9; O2SAT 97; BMI 24.4
--- NOTE | 2022-01-14 13:00 | HMH.EDUTC ---
[facility] [place]ression: Viral syndrome, Exposure to COVID-19 virus Disposition: Home, Self-Care Condition on Discharge: Good Instructions: DI for COVID-19 (Suspected or Confirmed ), Preventing the Spread of Coronavirus Discharge Instructions Additional Instructions: Drink plenty of fluids. Take tylenol or ibuprofen for pain or fever. Take the medications as directed. Follow up with your regular doctor. GO TO THE ER FOR ANY WORSENING SYMPTOMS Quarantine until you know the results of your covid-19 test. Notify your school or workplace of your results and follow their instructions regarding return to work/school. Prescriptions: Ondansetron [Zofran 4mg ODT] 4 mg PO Q8HP PRN #12 tab PRN Reason: Nausea Transmission Status: Received by [facility] Benzonatate [Benzonatate 100mg cap] 100 mg PO TIDP PRN #30 cap PRN Reason: Cough Transmission Status: Received by [facility] Referrals: Soren Elder MD [Primary Care Provider] - Forms: Work/School Release Time of Disposition: 13:10 Medical Decision Making - Medical Records Medical records reviewed: No: I reviewed the patient's medical records. - Spenser Inquiry Pt receiving controlled substance: No Vital Signs: 01/14/22 12:50 01/14/22 13:12 Temperature 98.4 F 98.4 F Temperature Source Oral Pulse Rate 61 Pulse Rate [Left] 61 Respiratory Rate 16 16 Blood Pressure 112/80 Blood Pressure [Right Arm] 112/80 Blood Pressure Mean [Right Arm] 90 02 Sat by Pulse Oximetry 97 [facility] [place] - General Stated complaint: covid test Time Seen by Provider: 01/14/22 13:00 Description of Symptoms (Recalled from Triage Doc. by RN): patient comes in for covid test. patient was exposed by father 2 weeks ago. patient is having runny nose, cough, body aches, chills, fatigue. HEENT Symptoms (Recalled from RN notes): Yes Resp Symptoms (Recalled from RN notes): Yes Skin Symptoms (Recalled from RN notes): No MS Symptoms (Recalled from RN notes): No Functional Status (Recalled from RN notes): n/a - Related Data Home Medications Medication Instructions Recorded Confirmed Codeine/Butalbital/ASA/Caffein 1 each PO Q4-6H 12/15/21 12/15/21 [Ascomp with Codeine Capsule] Previous Rx's Medication Instructions Recorded Benzonatate [Benzonatate 100mg 100 mg PO TIDP PRN #30 cap 01/14/22 cap] Ondansetron [Zofran 4mg ODT] 4 mg PO Q8HP PRN #12 tab 01/14/22 Allergies Allergy/AdvReac Type Severity Reaction Status Date / Time Penicillins Allergy Verified 01/14/22 12:59 - Worker's Comp Is this a Worker's Comp case?: No [facility] History - Hepatitis A Screen Attestation statement:: This patient has been screened for Hepatitis A risk factors. I have reviewed the patient's past medical history: Yes Medical History: Reports:: Anxiety, Depression, Kidney Stones (Patient has a history of multiple stones in the past), Migraine Denies:: Cancer, Diabetes Mellitus Type 1, Diabetes Mellitus Type 2, MRSA Other Surgeries: Yes: Other Amputation: No Comment: spine - Social History Smoking Status: Current every day smoker Tobacco Type: smokeless tobacco Alcohol Intake: never Occupational Status: other - Psychiatric History Pschychiatric History:: Reports:: Anxiety, Depression Family Hx:: No significant family history ROS Obtained: Yes All systems reviewed & no additional complaints - Constitutional Constitutional: Reports as per HPI - Eyes Eyes: Denies eye discharge - ENT Ears, Nose, Mouth, and Throat: Reports as per HPI - Cardiovascular Cardiovascular: Denies chest pain Physical Exam - General General appearance: alert, in no apparent distress - Head Head exam: atraumatic, normocephalic, normal inspection - Eye Eye exam: Present: normal appearance, PERRL, EOMI - ENT ENT exam: Present: normal exam, normal oropharynx, mucous membranes moist, TM's normal bilaterally, normal exte
[2022-01-14 13:12] VITALS: BP 112/80; PULSE 61; RESP 16; TEMP 36.9
== END 2022-01-14 13:20 | disposition home or self-care (01) ==
PROVIDERS: Emergency Provider Nurse Practitioner Family; PCP Internal Medicine
DX: Z03.89 Encounter for observation for other suspected diseases and conditions ruled out (principal); G43.909 Migraine, unspecified, not intractable, without status migrainosus; F32.A Depression, unspecified; F41.9 Anxiety disorder, unspecified; F17.290 Nicotine dependence, other tobacco product, uncomplicated; Z20.822 Contact with and (suspected) exposure to COVID-19; Z88.0 Allergy status to penicillin; Z87.442 Personal history of urinary calculi
CPT/HCPCS: 99213; C9803; G0463; U0003; U0005

== ENCOUNTER 2022-02-16 13:37 | Emergency (ER) | payer BC, SELFPAY ==
[2022-02-16 14:58] VITALS: BP 102/72; PULSE 64; RESP 16; TEMP 36.8; O2SAT 97; BMI 24.0
--- NOTE | 2022-02-16 15:04 | HMH.EDUTC ---
[facility] [place] Disposition Clinical Impression: Viral syndrome, Encounter for laboratory testing for COVID-19 virus Disposition: Home, Self-Care Condition on Discharge: Good Instructions: DI for COVID-19 (Suspected or Confirmed ), Preventing the Spread of Coronavirus Discharge Instructions Additional Instructions: *Monitor Temp, Over the counter Motrin or Tylenol as directed/as needed Tylenol every 4 hours and Motrin every 6 hours (as long as your family doctor has told you that you can take it) for fever or pain. and straight to ER if unable to lower temp less than 101.0 after medication given *Warm salt water gargles may help to soothe the throat *Throat Lozenges *Warm fluids like tea with honey may help to soothe the throat *Sleep elevated *Humidifier/Vaporizer Follow up IMMEDIATELY for new or worsening symptoms or no Noticeable improvement over the next 48-72 hours. 911 for difficulty breathing or swallowing You were tested for today for COVID19 your test result should be back in the next 24-48 hours, you may check your results on the [facility] My Health Portal Make sure to take your Vitamins Vit. C Vit D and Zinc if you can take them Referrals: Soren Elder MD [Primary Care Provider] - As needed Forms: Work/School Release Medical Decision Making - Spenser Inquiry Pt receiving controlled substance: No Spenser was queried for this patient: No Vital Signs: 02/16/22 14:58 Temperature 98.3 F Temperature Source Oral Pulse Rate [Left] 64 Respiratory Rate 16 Blood Pressure [Right Arm] 102/72 L Blood Pressure Mean [Right Arm] 82 02 Sat by Pulse Oximetry 97 Orders (Tests/Meds): ORDERS Category Date Time Status Covid-19 Nasal PCR ([facility]) Routine Lab 02/16/22 14:52 Ordered [facility] [place] HPI - General Stated complaint: postive home test,fever,headache Time Seen by Provider: 02/16/22 15:04 Mode of Arrival: Ambulatory Source of Information: Patient Limitations: No Limitations Description of Symptoms (Recalled from Triage Doc. by RN): patient comes in due to positive at home covid test. symptoms include headache, fever, weakness, nasal drainage, sore throat, vomitting. symptoms began a few days ago HEENT Symptoms (Recalled from RN notes): No Resp Symptoms (Recalled from RN notes): No Skin Symptoms (Recalled from RN notes): No MS Symptoms (Recalled from RN notes): No Functional Status (Recalled from RN notes): n/a - History of Present Illness Provider Complaint: Patient states that a few days ago he started with sore throat, body aches, chills, headache and nausea States that he took an at home COVID test and it was positive so he had to come in and get one for work - Related Data Home Medications Medication Instructions Recorded Confirmed Codeine/Butalbital/ASA/Caffein 1 each PO Q4-6H 12/15/21 12/15/21 [Ascomp with Codeine Capsule] Previous Rx's Medication Instructions Recorded Benzonatate [Benzonatate 100mg 100 mg PO TIDP PRN #30 cap 01/14/22 cap] Ondansetron [Zofran 4mg ODT] 4 mg PO Q8HP PRN #12 tab 01/14/22 Allergies Allergy/AdvReac Type Severity Reaction Status Date / Time Penicillins Allergy Verified 01/14/22 12:59 - Worker's Comp Is this a Worker's Comp case?: No [facility] History - Hepatitis A Screen Attestation statement:: This patient has been screened for Hepatitis A risk factors. I have reviewed the patient's past medical history: Yes Medical History: Reports:: Anxiety, Depression, Kidney Stones (Patient has a history of multiple stones in the past), Migraine Denies:: Cancer, Diabetes Mellitus Type 1, Diabetes Mellitus Type 2, MRSA Other Surgeries: Yes: Other Amputation: No Comment: spine - Social History Smoking Status: Current every day smoker Tobacco Type: smokeless tobacco Alcohol Intake: never Occupational Status: other - Psychiatric History Pschychiatric History:: Reports:: Anxiety, Depression Family Hx:: No significant family history ROS Obtained: Yes
[2022-02-16 16:02] VITALS: BP 102/72; PULSE 64; RESP 16; TEMP 36.8
== END 2022-02-16 16:03 | disposition home or self-care (01) ==
PROVIDERS: Emergency Provider Nurse Practitioner; PCP Internal Medicine
DX: U07.1 COVID-19 (principal)
CPT/HCPCS: 99212; C9803; G0463; U0003; U0005

== ENCOUNTER 2022-03-18 22:04 | Emergency (ER) | payer BC, SELFPAY ==
[2022-03-18 22:06] VITALS: BP 129/85; PULSE 82; RESP 16; TEMP 36.7; O2SAT 97; BMI 23.0
--- NOTE | 2022-03-18 22:31 | CT_ITS ---
PROCEDURE INFORMATION: Exam: CT Abdomen And Pelvis Without Contrast Exam date and time: 03/18/2022 10:37 PM Age: 51 years old Clinical indication: Abdominal pain; Flank; Left; Additional info: Lt flank pain TECHNIQUE: Imaging protocol: Computed tomography of the abdomen and pelvis without contrast. Radiation optimization: All CT scans at this facility use at least one of these dose optimization techniques: automated exposure control; mA and/or kV adjustment per patient size (includes targeted exams where dose is matched to clinical indication); or iterative reconstruction. COMPARISON: ABDPELW/O CT ABD PELVIS W/O CONTRAST 09/09/2016 3:17 AM FINDINGS: Liver: Normal. No mass. Gallbladder and bile ducts: Normal. No calcified stones. No ductal dilation. Pancreas: Normal. No ductal dilation. Spleen: Normal. No splenomegaly. Adrenal glands: Normal. No mass. Kidneys and ureters: Punctate non-obstructing right renal stone. No hydronephrosis. The stranding associated with the left kidney could indicate mild pyelonephritis. Stomach and bowel: Unremarkable. No obstruction. No mucosal thickening. Appendix: No evidence of appendicitis. Intraperitoneal space: Unremarkable. No free air. No significant fluid collection. Vasculature: Unremarkable. No abdominal aortic aneurysm. Lymph nodes: Unremarkable. No enlarged lymph nodes. Urinary bladder: Unremarkable as visualized. Reproductive: Unremarkable as visualized. Bones/joints: Unremarkable. No acute fracture. Soft tissues: Unremarkable. IMPRESSION: Subtle stranding associated with the left kidney could indicate mild pyelonephritis. No obstructive uropathy.
[2022-03-18 22:35] LABS: Microscopic, Urine URINE MICROSCOPIC (MICROSCOPIC)
[2022-03-18 22:38] LABS: Appearance,Urine CLEAR (Clear); Bilirubin,Urine Negative (Negative); Blood, Urine 3+ (Negative); Color,Urine YELLOW (Yellow); Glucose,Urine (UA) Negative (Negative); Ketones,Urine Negative (Negative); Leukocyte Esterase,Urine Negative (Negative); Nitrate,Urine Negative (Negative); PH,Urine 6.5 (5.0-8.5); Protein,Urine Negative (Negative); Specific Gravity, Urine 1.025 (1.005-1.030); Urobilinogen,Urine 0.2 EU/dl (0.2)
[2022-03-18 22:50] LABS: Bacteria,Urine Trace /lpf
--- NOTE | 2022-03-18 22:51 | HMH.EDGENADL ---
Discharge Plan Disposition Patient Disposition: Home, Self-Care Condition: Good Prescriptions Prescriptions: New ibuprofen 600 mg tablet 600 mg PO Q8H PRN (Reason: pain) Qty: 12 0RF tamsulosin [Flomax] 0.4 mg capsule 0.4 mg PO DAILY Qty: 5 0RF hydrocodone-acetaminophen 5-325 mg tablet 1 tab PO Q6H PRN (Reason: pain, severe) Qty: 6 0RF No Action nirljoo-xqmejbhtgx-AUD-caff 1 EACH capsule 1 each PO Q4-6H ondansetron 4 MG tablet,disintegrating 4 mg PO Q8HP PRN (Reason: Nausea) Qty: 12 0RF benzonatate 100 MG capsule 100 mg PO TIDP PRN (Reason: Cough) Qty: 30 0RF Referrals Follow up/Referrals: Soren Elder MD [Primary Care Provider] - See instructions Activity Restrictions/Add. Instructions Additional Instructions/Restrictions: You have been evaluated for left flank pain, likely due to recently passed kidney stone. Please take anti-inflammatory medication like ibuprofen 600 mg. Take [facility] for severe pain. Take Flomax. Stay hydrated. Follow-up with your primary care doctor. Return to the emergency department for any new or worsening symptoms. Clinical Impressions Clinical Impression: Kidney stone on left side Instructions Patient Instructions: DI for Kidney Stones Discharge ED Provider: Rachel Collazo Adult HPI General Chief complaint: Abdominal Pain Stated complaint: Left side pain Time Seen by Provider: 03/18/22 22:51 Mode of Arrival: Ambulatory Limitations: No Limitations Description of Symptoms (Recalled from ER Triage Doc. by RN): pt c/o lt flank pain that radiates LLQ that started about 8:30. pt has history of kidney stones History of Present Illness HPI narrative: 51-year-old male presenting to the emergency department with flank pain. Started suddenly this evening around 8:30 PM. Is described as sharp, stabbing, located on the left side and radiating slightly toward the anterior abdomen. Pain has been constant since onset. Nothing seems to make it better or worse. No medications prior to arrival. Warren well throughout the day today. Denies recent illness, fevers, chills, nausea, vomiting, diarrhea. Did not notice blood in his urine. He has a history of kidney stones, but not in a few years. He never required stent or lithotripsy. Denies injury, fall, heavy lifting Related Data Home Medications Medication Instructions Recorded Confirmed czmxymc-fmwhztfsme-QEW-caffeine 30 1 each PO Q4-6H Headache 12/15/21 12/15/21 mg-50 mg-325 mg-40 mg capsule Previous Rx's Medication Instructions Recorded benzonatate 100 mg capsule 100 mg PO TIDP PRN Cough #30 caps 01/14/22 ondansetron 4 mg disintegrating 4 mg PO Q8HP PRN Nausea #12 tabs 01/14/22 tablet hydrocodone 5 mg-acetaminophen 325 1 tab PO Q6H PRN pain, severe #6 03/18/22 mg tablet tabs ibuprofen 600 mg tablet 600 mg PO Q8H PRN pain #12 tabs 03/18/22 tamsulosin 0.4 mg capsule (Flomax) 0.4 mg PO DAILY #5 caps 03/18/22 Allergies Allergy/AdvReac Type Severity Reaction Status Date / Time Penicillins Allergy Verified 01/14/22 12:59 PFSH PFSH Social History Smoking Status: Never smoker second hand exposure: No alcohol intake: never current occupational status: other Travel in the last 8 weeks: None ROS Obtained: Yes All systems reviewed & no additional complaints except as documented Constitutional Constitutional: Denies chills, Denies fever(s) and Denies headache(s) ENT Ears, Nose, Mouth, and Throat: Denies dizziness, Denies headache(s), Denies sinus pain, Denies sore throat and Denies vertigo Cardiovascular Cardiovascular: Denies chest pain, Denies dyspnea and Denies palpitations Respiratory Respiratory: Denies cough, Denies dyspnea and Denies wheezing Gastrointestinal Gastrointestingal: Reports abdominal pain and cramping; Denies diarrhea, nausea or vomiting Genitourinary Male Genitourinary: Reports flank pain and Denies testicular pain Integumentary/Breasts Skin/Breast
[2022-03-18 23:13] VITALS: BP 134/89; PULSE 72; O2SAT 97
[2022-03-18 23:26] LABS: Basophils # 0.2 K/mm3 (0-0.2); Basophils % 1.6 % (0.1-2.0); Eosinophils # 0.8 K/mm3 (0.0-0.4); Eosinophils % 6.3 % (0.1-12.0); Hematocrit 44.8 % (42.0-52.0); Hemoglobin 14.4 g/dL (14.1-18.0); Lymphocytes # 1.8 K/mm3 (0.7-4.5); Lymphocytes % 14.5 % (10-50); Mean Corpuscular HGB Conc 32.2 g/dL (31.8-35.4); Mean Corpuscular Hemoglobin 29.7 pg (27.0-31.2); Mean Corpuscular Volume 92.3 fl (80-94); Mean Platelet Volume 7.3 fl (7.4-10.4); Monocytes # 0.6 K/mm3 (0.1-1.0); Monocytes % 4.7 % (1.7-9.3); Neutrophils # 8.8 K/mm3 (1.8-7.8); Neutrophils % 72.8 % (37.0-80.0); Platelet Count 376 K/mm3 (142-424); Red Blood Count 4.85 M/mm3 (4.60-6.20); Red Cell Distribution Width 13.6 % (11.5-17.5); White Blood Count 12.1 K/mm3 (4.8-10.8)
[2022-03-18 23:34] LABS: Alanine Aminotransferase 18 U/L (12-78); Albumin Level 3.9 g/dl (3.5-5.0); Albumin/Globulin Ratio 1.3 (1.1-1.8); Alkaline Phosphatase 100 U/L (38-126); Anion Gap 16.1 mEq/L (5-15); Aspartate Amino Transferase 26 U/L (17-59); Blood Urea Nitrogen 14 mg/dl (9-20); Calcium 8.3 mg/dl (8.4-10.2); Carbon Dioxide 28 mmol/L (22.0-30.0); Chloride 101 mmol/L (98-107); Creatinine Clearance Estimated 118 mL/min (50-200); Estimated Glomerular Filt Rate 103 ml/min (>60); GFR (African American) 124 ML/MIN (>60); Globulin 3.1 g/dL (1.3-3.2); Glucose 93 mg/dl (74-100); Potassium 4.1 mmoL/L (3.5-5.1); Sodium 141 mmol/L (136-145)
[2022-03-18 23:42] LABS: Bilirubin,Total < 0.1 mg/dl (0.2-1.3)
[2022-03-19 00:14] VITALS: BP 126/82; PULSE 78; RESP 16; TEMP 36.8; O2SAT 98
== END 2022-03-19 00:17 | disposition home or self-care (01) ==
PROVIDERS: Emergency Provider Emergency Medicine; PCP Internal Medicine
DX: N20.0 Calculus of kidney (principal); Z87.442 Personal history of urinary calculi
CPT/HCPCS: 74176; 80053; 81001; 85025; 96361; 96374; 99284; J2405

== ENCOUNTER 2022-03-31 13:46 | Emergency (ER) | payer BC, SELFPAY ==
--- NOTE | 2022-03-31 14:09 | EXP.UTC ---
Discharge Plan Disposition Patient Disposition: Home, Self-Care Condition: Good Prescriptions Prescriptions: New methocarbamol 500 mg tablet 500 mg PO BID PRN (Reason: low back pain) Qty: 10 0RF No Action ibuprofen 600 mg tablet 600 mg PO Q8H PRN (Reason: pain) Qty: 12 0RF tamsulosin [Flomax] 0.4 mg capsule 0.4 mg PO DAILY Qty: 5 0RF hydrocodone-acetaminophen 5-325 mg tablet 1 tab PO Q6H PRN (Reason: pain, severe) Qty: 6 0RF jrdhaks-uemdblvfgr-KPB-caff 1 EACH capsule 1 each PO Q4-6H ondansetron 4 MG tablet,disintegrating 4 mg PO Q8HP PRN (Reason: Nausea) Qty: 12 0RF benzonatate 100 MG capsule 100 mg PO TIDP PRN (Reason: Cough) Qty: 30 0RF Referrals Follow up/Referrals: Allen Doshi MD [Staff Physician] - See instructions Soren Elder MD [Primary Care Provider] - See instructions Activity Restrictions/Add. Instructions Additional Instructions/Restrictions: *Ibuprofen rosendo 6 hours with meal as needed for pain/inflammation *Remember you had a Toradol shot in the clinic today, which is similar to Motrin *Not additional anti-inflammatory like motrin, aleve, advil with the above amount of ibuprofen. You can still take Tylenol every 4 hours as needed if you need something else for pain *Ice 20 minutes every 2 hours for the first 48 hours after the initial injury followed by moist heat every 20 minutes 3-4 times a day to affected area *Muscle relaxer every 12 hours as needed for muscle spasms but remember, it WILL cause drowsiness You cannot take it and drive, operate machinery or care for small children. *Keep this area active, no movement leads to more stiffness, However take it easy and avoid heavy lifting pushing or pulling *Follow up with you family doctor if no improvement for further treatment Clinical Impressions Clinical Impression: Low back pain Instructions Patient Instructions: Low Back Pain, Methocarbamol Discharge ED Provider: Blanca Ontiveros [facility] [place] General Stated complaint: back and leg pain, unknown origin Time Seen by Provider: 03/31/22 14:10 History of Present Illness Provider Complaint: Patient states that he has been having back problems for years States that for the last couple of days he has been having Pain in his lower back that goes into his buttock and upper legs States that he was going to see his PCP but he was out today so he came up here Related Data Home Medications Medication Instructions Recorded Confirmed ymzzktg-cziholmkch-QQC-caffeine 30 1 each PO Q4-6H Headache 12/15/21 12/15/21 mg-50 mg-325 mg-40 mg capsule Previous Rx's Medication Instructions Recorded benzonatate 100 mg capsule 100 mg PO TIDP PRN Cough #30 caps 01/14/22 ondansetron 4 mg disintegrating 4 mg PO Q8HP PRN Nausea #12 tabs 01/14/22 tablet hydrocodone 5 mg-acetaminophen 325 1 tab PO Q6H PRN pain, severe #6 03/18/22 mg tablet tabs ibuprofen 600 mg tablet 600 mg PO Q8H PRN pain #12 tabs 03/18/22 tamsulosin 0.4 mg capsule (Flomax) 0.4 mg PO DAILY #5 caps 03/18/22 methocarbamol 500 mg tablet 500 mg PO BID PRN low back pain 03/31/22 #10 tabs Allergies Allergy/AdvReac Type Severity Reaction Status Date / Time Penicillins [facility]ergy Ver[facility]/14/22 12:59 [facility] History (Updated 03/31/22 @ 14:27 by Blanca Ontiveros APRN) Kidney stone Migraine Surgical History (Updated 03/31/22 @ 14:24 by Snehal Cruz RN) History of spinal fusion Social History (Updated 03/31/22 @ 14:24 by Snehal Cruz RN) Smoking Status: Never smoker second hand exposure: No alcohol intake: never current occupational status: other Travel in the last 8 weeks: None ROS Obtained: Yes All systems reviewed & no additional complaints except as documented and Yes Systems reviewed as appropriate & no additional complaints except as documented Constitutional Constitutional: Reports system reviewed and no additional complaints, except as documented an
[2022-03-31 14:10] VITALS: BP 142/86; PULSE 84; RESP 19; TEMP 36.8; O2SAT 98; BMI 24.1
[2022-03-31 14:48] VITALS: BP 142/86; PULSE 84; RESP 19; TEMP 36.8; O2SAT 98
== END 2022-03-31 14:54 | disposition home or self-care (01) ==
PROVIDERS: Emergency Provider Nurse Practitioner; PCP Internal Medicine
DX: M54.16 Radiculopathy, lumbar region (principal); N20.0 Calculus of kidney; G43.909 Migraine, unspecified, not intractable, without status migrainosus; Z79.899 Other long term (current) drug therapy; Z88.0 Allergy status to penicillin; Z98.1 Arthrodesis status
CPT/HCPCS: 96372; 99213; G0463

== ENCOUNTER 2022-03-31 20:16 | Emergency (ER) | payer BC, SELFPAY ==
[2022-03-31 21:09] VITALS: BP 140/95; PULSE 82; RESP 16; TEMP 36.8; O2SAT 98; BMI 25.1
--- NOTE | 2022-03-31 21:19 | HMH.EDHA ---
Discharge Plan Disposition Patient Disposition: Home, Self-Care Chief Complaint: Headache Prescriptions Prescriptions: No Action ibuprofen 600 mg tablet 600 mg PO Q8H PRN (Reason: pain) Qty: 12 0RF tamsulosin [Flomax] 0.4 mg capsule 0.4 mg PO DAILY Qty: 5 0RF hydrocodone-acetaminophen 5-325 mg tablet 1 tab PO Q6H PRN (Reason: pain, severe) Qty: 6 0RF ueehexb-mulzdsbwle-KSF-caff 1 EACH capsule 1 each PO Q4-6H ondansetron 4 MG tablet,disintegrating 4 mg PO Q8HP PRN (Reason: Nausea) Qty: 12 0RF benzonatate 100 MG capsule 100 mg PO TIDP PRN (Reason: Cough) Qty: 30 0RF methocarbamol 500 mg tablet 500 mg PO BID PRN (Reason: low back pain) Qty: 10 0RF Referrals Follow up/Referrals: Soren Elder MD [Primary Care Provider] - See instructions Clinical Impressions Clinical Impression: Migraine Instructions Patient Instructions: DI for Migraine Discharge ED Provider: Cade Chand Headache HPI General Chief Complaint: Headache Stated Complaint: RODRIGUEZ Time Seen by Provider: 03/31/22 21:19 Mode of Arrival: Ambulatory Source of Information: Patient, Spouse and Medical Record Limitations: No Limitations Description of Symptoms (Recalled from ER Triage Doc. by RN): Pt states that he was seen in [facility] earlier today for an arthritis flare up in his lower back because his pcp is out sick. States at that time he had a slight headache but was told the toradol injection he was getting would help both his back pain and his headache. Pt state that since 2pm his migraine has gotten worse and he is now vomiting. Does report a history of migraines. History of Present Illness HPI Narrative: hx of migraines with acute exacerbation niurka GALLEGOS Complaint: migraine Onset (ago): hour(s) Onset description: gradual Location: diffuse Severity: similar to previous episodes Quality: similar to previous headaches Context: occurred at rest Associated symptoms: none Treatments prior to arrival: none Related Data Home Medications Medication Instructions Recorded Confirmed nvevtoa-cvkiypodti-QJG-caffeine 30 1 each PO Q4-6H Headache 12/15/21 12/15/21 mg-50 mg-325 mg-40 mg capsule Previous Rx's Medication Instructions Recorded benzonatate 100 mg capsule 100 mg PO TIDP PRN Cough #30 caps 01/14/22 ondansetron 4 mg disintegrating 4 mg PO Q8HP PRN Nausea #12 tabs 01/14/22 tablet hydrocodone 5 mg-acetaminophen 325 1 tab PO Q6H PRN pain, severe #6 03/18/22 mg tablet tabs ibuprofen 600 mg tablet 600 mg PO Q8H PRN pain #12 tabs 03/18/22 tamsulosin 0.4 mg capsule (Flomax) 0.4 mg PO DAILY #5 caps 03/18/22 methocarbamol 500 mg tablet 500 mg PO BID PRN low back pain 03/31/22 #10 tabs Allergies Allergy/AdvReac Type Severity Reaction Status Date / Time Penicillins Allergy Verified 01/14/22 12:59 [facility] History Hepatitis A Screen Attestation statement:: This patient has been screened for Hepatitis A risk factors. I have reviewed the patient's past medical history: Yes Medical History: Reports: Anxiety, Depression, Kidney Stones (Patient has a history of multiple stones in the past) and Migraine; Denies: Cancer, Diabetes Mellitus Type 1, Diabetes Mellitus Type 2 or MRSA Other Surgeries: Yes Other Amputation: No Comment: spine Social History Smoking Status: Never smoker Tobacco Type: smokeless tobacco Alcohol Intake: never Occupational Status: other Psychiatric History Pschychiatric History:: Reports: Anxiety and Depression Family Hx:: No significant family history [facility] Medical History (Updated 03/31/22 @ 21:59 by Cade Chand MD) Kidney stone Migraine Surgical History (Updated 03/31/22 @ 14:24 by Snehal Cruz RN) History of spinal fusion Social History (Updated 03/31/22 @ 14:24 by Snehal Cruz RN) Smoking Status: Never smoker second hand exposure: No alcohol intake: never current occupational status: other Travel in the last 8 weeks: None
--- NOTE | 2022-03-31 22:03 | PC.NURSE ---
Patient continues to c/o pain from his headache. MD notified. New medication ordered to treat pain.
[2022-03-31 22:34] VITALS: BP 138/76; PULSE 68; RESP 18; TEMP 36.6; O2SAT 99
== END 2022-03-31 22:37 | disposition home or self-care (01) ==
PROVIDERS: Emergency Provider Emergency Medicine; PCP Internal Medicine
DX: G43.909 Migraine, unspecified, not intractable, without status migrainosus (principal); M54.50 Low back pain, unspecified; R11.2 Nausea with vomiting, unspecified; R05.9 Cough, unspecified; M19.90 Unspecified osteoarthritis, unspecified site; F32.A Depression, unspecified; F41.9 Anxiety disorder, unspecified; Z79.1 Long term (current) use of non-steroidal anti-inflammatories (NSAID); Z79.899 Other long term (current) drug therapy; Z88.0 Allergy status to penicillin; Z98.1 Arthrodesis status; Z87.442 Personal history of urinary calculi
CPT/HCPCS: 96361; 96374; 96375; 99285

== ENCOUNTER 2022-06-10 16:07 | Emergency (ER) | payer BC, SELFPAY ==
[2022-06-10 17:25] VITALS: BP 140/80; PULSE 78; RESP 19; TEMP 37.1; O2SAT 98; BMI 25.1
[2022-06-10 17:48] VITALS: BP 140/80; PULSE 78; RESP 19; TEMP 37.1; O2SAT 98
--- NOTE | 2022-06-10 18:15 | EXP.UTC ---
Discharge Plan Disposition Patient Disposition: Home, Self-Care Prescriptions Prescriptions: No Action ibuprofen 600 mg tablet 600 mg PO Q8H PRN (Reason: pain) Qty: 12 0RF tamsulosin [Flomax] 0.4 mg capsule 0.4 mg PO DAILY Qty: 5 0RF hydrocodone-acetaminophen 5-325 mg tablet 1 tab PO Q6H PRN (Reason: pain, severe) Qty: 6 0RF pfceiso-cweemcpbnh-PDN-caff 1 EACH capsule 1 each PO Q4-6H ondansetron 4 MG tablet,disintegrating 4 mg PO Q8HP PRN (Reason: Nausea) Qty: 12 0RF benzonatate 100 MG capsule 100 mg PO TIDP PRN (Reason: Cough) Qty: 30 0RF methocarbamol 500 mg tablet 500 mg PO BID PRN (Reason: low back pain) Qty: 10 0RF Referrals Follow up/Referrals: Soren Elder MD [Primary Care Provider] - See instructions Activity Restrictions/Add. Instructions Additional Instructions/Restrictions: *Monitor Temp, Over the counter Motrin or Tylenol as directed/as needed Tylenol every 4 hours and Motrin every 6 hours (as long as your family doctor has told you that you can take it) for fever or pain. and straight to ER if unable to lower temp less than 101.0 after medication given *Warm salt water gargles may help to soothe the throat *Throat Lozenges? *Warm fluids like tea with honey may help to soothe the throat? *Sleep elevated *Humidifier/Vaporizer Follow up IMMEDIATELY for new or worsening symptoms or no Noticeable improvement over the next 48-72 hours. 911 for difficulty breathing or swallowing You were tested for today for Upper Respiratory Panel with COVID19 your test result should be back in the next 24-48 hours, you may check your results on the [facility] [employer] [facility] Portal Clinical Impressions Clinical Impression: Viral syndrome Stand Alone Forms Stand Alone Forms: Work/School Release Instructions Patient Instructions: COVID-19 Antibody Test, DI for Fever (Symptom) -- Adult Discharge ED Provider: Blanca Ontiveros [facility] [place] HPI General Stated complaint: Aching, headache, sore throat, vomiting Mode of Arrival: Ambulatory Source of Information: Patient Limitations: No Limitations Time Seen by Provider: 06/10/22 18:15 Description of Symptoms (Recalled from Triage Doc. by RN): PATIENT C/O HEADACHE, BODY ACHES AND VOMITING X 2 DAYS HEENT Symptoms (Recalled from RN notes): Yes Resp Symptoms (Recalled from RN notes): No Skin Symptoms (Recalled from RN notes): No MS Symptoms (Recalled from RN notes): No Functional Status (Recalled from RN notes): WNL History of Present Illness Provider Complaint: Patient states that he was recently around someone that has tested positive for COVID States that now he has been having Nausea, vomiting body aches, chills and fever States that he was wanting to get tested for COVID and flu Related Data Home Medications Medication Instructions Recorded Confirmed zyzswbc-frcbrbqxut-PJW-caffeine 30 1 each PO Q4-6H Headache 12/15/21 12/15/21 mg-50 mg-325 mg-40 mg capsule Previous Rx's Medication Instructions Recorded benzonatate 100 mg capsule 100 mg PO TIDP PRN Cough #30 caps 01/14/22 ondansetron 4 mg disintegrating 4 mg PO Q8HP PRN Nausea #12 tabs 01/14/22 tablet hydrocodone 5 mg-acetaminophen 325 1 tab PO Q6H PRN pain, severe #6 03/18/22 mg tablet tabs ibuprofen 600 mg tablet 600 mg PO Q8H PRN pain #12 tabs 03/18/22 tamsulosin 0.4 mg capsule (Flomax) 0.4 mg PO DAILY #5 caps 03/18/22 methocarbamol 500 mg tablet 500 mg PO BID PRN low back pain 03/31/22 #10 tabs Allergies Allergy/AdvReac Type Severity Reaction Status Date / Time Penicillins Allergy Verified 01/14/22 12:59 Worker's Comp Is this a Worker's Comp case?: No [facility] Disclaimer: The information contained in this section may have been updated after the patient was seen, as this information can be updated by other users. Medical History (Updated 06/10/22 @ 18:22 by Blanca Ontiveros APRN) Anxiety Depression Kidney stone Migraine Surgical Histor
[2022-06-10 18:34] LABS: Coronavirus 19, PCR Not Detected (NotDetected); Influenza A, PCR Not Detected (NotDetected); Influenza B, PCR Not Detected (NotDetected)
== END 2022-06-10 18:28 | disposition home or self-care (01) ==
PROVIDERS: Emergency Provider Nurse Practitioner; PCP Internal Medicine
DX: J02.9 Acute pharyngitis, unspecified (principal); M54.50 Low back pain, unspecified; R50.9 Fever, unspecified; M79.10 Myalgia, unspecified site; R11.2 Nausea with vomiting, unspecified; R05.9 Cough, unspecified; F32.A Depression, unspecified; F41.9 Anxiety disorder, unspecified; Z79.1 Long term (current) use of non-steroidal anti-inflammatories (NSAID); Z79.899 Other long term (current) drug therapy; Z20.822 Contact with and (suspected) exposure to COVID-19; Z87.442 Personal history of urinary calculi
CPT/HCPCS: 99213; C9803; G0463; U0003; U0005

== ENCOUNTER 2022-07-29 16:48 | Emergency (ER) | payer BC, SELFPAY ==
[2022-07-29 16:59] VITALS: BP 136/94; PULSE 64; RESP 15; TEMP 36.7; O2SAT 98; BMI 24.4
[2022-07-29 19:29] VITALS: BP 135/86; PULSE 59; RESP 12; O2SAT 98
[2022-07-29 20:00] VITALS: BP 139/88; PULSE 71; O2SAT 95
--- NOTE | 2022-07-29 20:21 | HMH.EDGENADL ---
Discharge Plan Disposition Patient Disposition: Home, Self-Care Condition: Good Prescriptions Prescriptions: No Action ibuprofen 600 mg tablet 600 mg PO Q8H PRN (Reason: pain) Qty: 12 0RF tamsulosin [Flomax] 0.4 mg capsule 0.4 mg PO DAILY Qty: 5 0RF hydrocodone-acetaminophen 5-325 mg tablet 1 tab PO Q6H PRN (Reason: pain, severe) Qty: 6 0RF sgmluag-ycbvktjbwn-SSH-caff 1 EACH capsule 1 each PO Q4-6H ondansetron 4 MG tablet,disintegrating 4 mg PO Q8HP PRN (Reason: Nausea) Qty: 12 0RF benzonatate 100 MG capsule 100 mg PO TIDP PRN (Reason: Cough) Qty: 30 0RF methocarbamol 500 mg tablet 500 mg PO BID PRN (Reason: low back pain) Qty: 10 0RF Referrals Follow up/Referrals: Soren Elder MD [Primary Care Provider] - See instructions Clinical Impressions Clinical Impression: Migraine Instructions Patient Instructions: DI for Migraine Discharge ED Provider: Logan Cote General Adult HPI General Chief complaint: Headache Stated complaint: RODRIGUEZ Time Seen by Provider: 07/29/22 16:55 Mode of Arrival: Ambulatory Source of Information: Patient and Spouse Limitations: No Limitations Description of Symptoms (Recalled from ER Triage Doc. 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 He says that over the last few days he has had persistent headache. He describes it as an ocular migraine in which both of his eyes are bilaterally. He says he has been having blurry vision during this time. He says that he typically has migraines every single month. This is no worse than any of his normal headaches but it is just been persistent and not gone away. He has tried to take Tylenol for his symptoms. He denies any numbness or tingling into his extremities. Denies any chest or abdominal pain. Denies any difficulty with ambulation. He has been nauseous and has had some vomiting. Related Data Home Medications Medication Instructions Recorded Confirmed vcljgws-xipoexisjw-UJC-caffeine 30 1 each PO Q4-6H Headache 12/15/21 12/15/21 mg-50 mg-325 mg-40 mg capsule Previous Rx's Medication Instructions Recorded benzonatate 100 mg capsule 100 mg PO TIDP PRN Cough #30 caps 01/14/22 ondansetron 4 mg disintegrating 4 mg PO Q8HP PRN Nausea #12 tabs 01/14/22 tablet hydrocodone 5 mg-acetaminophen 325 1 tab PO Q6H PRN pain, severe #6 03/18/22 mg tablet tabs ibuprofen 600 mg tablet 600 mg PO Q8H PRN pain #12 tabs 03/18/22 tamsulosin 0.4 mg capsule (Flomax) 0.4 mg PO DAILY #5 caps 03/18/22 methocarbamol 500 mg tablet 500 mg PO BID PRN low back pain 03/31/22 #10 tabs Allergies Allergy/AdvReac Type Severity Reaction Status Date / Time Penicillins [facility]14[facility]22 12[facility] Dis[facility]: The information contained in this section may have been updated after the patient was seen, as this information can be updated by other users. Medical History (Updated 07/29/22 @ 20:28 by Logan Cote MD) Anxiety Depression Kidney stone Migraine Surgical History History of spinal fusion Social History (Updated 06/10/22 @ 17:43 by Snehal Cruz RN) Smoking Status: Never smoker second hand exposure: No alcohol intake: never current occupational status: other Travel in the last 8 weeks: None ROS Obtained: Yes All systems reviewed & no additional complaints except as documented A 14 point review of system was obtained and otherwise negative except per HPI Physical Exam General General appearance: alert and in no apparent distress Head Head exam: atraumatic, normocephalic and normal inspection Ey
[2022-07-29 20:30] VITALS: BP 142/88; PULSE 69; O2SAT 98
[2022-07-29 20:35] VITALS: BP 140/85; PULSE 70; RESP 18; TEMP 36.6; O2SAT 99
== END 2022-07-29 20:41 | disposition home or self-care (01) ==
PROVIDERS: Emergency Provider Student in an Organized Health Care Education/Training Program; PCP Internal Medicine
DX: G43.909 Migraine, unspecified, not intractable, without status migrainosus (principal); F41.9 Anxiety disorder, unspecified; Z87.442 Personal history of urinary calculi; M43.20 Fusion of spine, site unspecified
CPT/HCPCS: 96361; 96374; 96375; 99284; 99285; J3475

== ENCOUNTER 2022-10-13 18:05 | Emergency (ER) | payer BC, SELFPAY ==
[2022-10-13 18:15] VITALS: BP 131/86; PULSE 69; RESP 18; TEMP 36.8; O2SAT 100; BMI 23.6
--- NOTE | 2022-10-13 18:44 | EXP.UTC ---
Discharge Plan Disposition Patient Disposition: Home, Self-Care Condition: Good Prescriptions Prescriptions: New guaifenesin [Mucinex] 600 mg tablet extended release 12hr 600 - 1,200 mg PO BID PRN (Reason: cough/congestion) Qty: 20 0RF azithromycin [Zithromax Z-Ricardo] 250 mg tablet See Rx Instructions .ROUTE .COMPLEX 5 Days Qty: 6 0RF Rx Instructions: For 250 mg dose pack: take 500 mg today (day 1), then 250 mg for 4 days (days 2-5) prednisone [prednisone] 20 mg tablet 20 mg PO BID 5 Days Qty: 10 0RF No Action ibuprofen 600 mg tablet 600 mg PO Q8H PRN (Reason: pain) Qty: 12 0RF tamsulosin [Flomax] 0.4 mg capsule 0.4 mg PO DAILY Qty: 5 0RF hydrocodone-acetaminophen 5-325 mg tablet 1 tab PO Q6H PRN (Reason: pain, severe) Qty: 6 0RF dgsgezs-ubkzfclezz-ZLF-caff 1 EACH capsule 1 each PO Q4-6H ondansetron 4 MG tablet,disintegrating 4 mg PO Q8HP PRN (Reason: Nausea) Qty: 12 0RF benzonatate 100 MG capsule 100 mg PO TIDP PRN (Reason: Cough) Qty: 30 0RF methocarbamol 500 mg tablet 500 mg PO BID PRN (Reason: low back pain) Qty: 10 0RF Referrals Follow up/Referrals: Soren Elder MD [Primary Care Provider] - See instructions Activity Restrictions/Add. Instructions Additional Instructions/Restrictions: Start antibiotic today. Be sure to complete entire prescription even if feeling better Monitor temp. Tylenol every 4 hours as needed and / or ibuprofen every 6 hours as needed ( As long as your primary care physician has told you that it ok to take both. For fever/aches/pains ER if no less than 101 despite Tylenol or Motrin Humidifier/vaporizer or hot steamy shower Mucinex for your cough Be sure to drink lots of water. Insurance may not cover a prescriptions for mucinex. Might be cheaper to get 400mg tablets and take 2 tablet in the morning, mid-day and evening with lots of water. *Start steroid today. Helps with inflammation therefore, cough and wheezing. Follow directions on the package. Reviewed side effects. Patient reports taking them before. Follow up IMMEDIATELY for new or worsening of symptoms OR no noticeable improvement over the next 48-72 hours. 911 immediately for any life threatening symptoms such as chest pain or difficulty breathing Clinical Impressions Clinical Impression: Bronchitis, Sinusitis Instructions Patient Instructions: DI for Sinusitis, Sinusitis, Acute Bronchitis Discharge ED Provider: Blanca Ontiveros [facility] [place] HPI General Stated complaint: Cough,Headache Mode of Arrival: Ambulatory Source of Information: Patient Limitations: No Limitations Time Seen by Provider: 10/13/22 18:44 Description of Symptoms (Recalled from Triage Doc. by RN): PATIENT C/O COUGH, HEADACHE, CHEST PRESSURE, AND RUNNY NOSE X 2 DAYS HEENT Symptoms (Recalled from RN notes): Yes Resp Symptoms (Recalled from RN notes): Yes Skin Symptoms (Recalled from RN notes): No MS Symptoms (Recalled from RN notes): No Functional Status (Recalled from RN notes): WNL History of Present Illness Provider Complaint: Patient states that he has been having sinus pain and pressure, cough and chest congestion States that he feels like he may have a sinus infection and sometimes if it goes too long he gets bronchitis and feels like he is setting up bronchitis now Related Data Home Medications Medication Instructions Recorded Confirmed yfrlsxy-etccfsrays-XSD-caffeine 30 1 each PO Q4-6H Headache 12/15/21 12/15/21 mg-50 mg-325 mg-40 mg capsule Previous Rx's Medication Instructions Recorded benzonatate 100 mg capsule 100 mg PO TIDP PRN Cough #30 caps 01/14/22 ondansetron 4 mg disintegrating 4 mg PO Q8HP PRN Nausea #12 tabs 01/14/22 tablet hydrocodone 5 mg-acetaminophen 325 1 tab PO Q6H PRN pain, severe #6 03/18/22 mg tablet tabs ibuprofen 600 mg tablet 600 mg PO Q8H PRN pain #12 tabs 03/18/22 tamsulosin 0.4 mg capsule (Flomax)
[2022-10-13 19:04] VITALS: BP 131/86; PULSE 69; RESP 18; TEMP 36.8; O2SAT 100
== END 2022-10-13 19:30 | disposition home or self-care (01) ==
PROVIDERS: Emergency Provider Nurse Practitioner; PCP Internal Medicine
DX: J20.9 Acute bronchitis, unspecified (principal); J01.90 Acute sinusitis, unspecified; R51.9 Headache, unspecified
CPT/HCPCS: 99212; 99214; G0463

== ENCOUNTER → 2022-11-19 10:22 | Outpatient (CLI) | payer BC, SELFPAY ==
--- NOTE | 2022-11-19 10:25 | XR_ITS ---
FINAL REPORT CLINICAL HISTORY: back pain FINDINGS: LUMBAR SPINE Three views demonstrate no acute fracture. There is mild rightward curvature. Mild and moderate degenerative changes are present, greatest at L5-S1. There is facet arthropathy at L5-S1. IMPRESSION: Degenerative changes, greatest at L5-S1. Reviewed, Interpreted and Dictated by Hermes Wade III, MD Transcribed by Zuleima Guardado Authenticated and [facility]
[2022-11-19 11:16] LABS: Basophils # 0.1 K/mm3 (0-0.2); Basophils % 1.5 % (0.1-2.0); Eosinophils # 1.1 K/mm3 (0.0-0.4); Eosinophils % 14.1 % (0.1-12.0); Hematocrit 43.5 % (42.0-52.0); Hemoglobin 14.7 g/dL (14.1-18.0); Lymphocytes # 1.7 K/mm3 (0.7-4.5); Lymphocytes % 22.4 % (10-50); Mean Corpuscular HGB Conc 33.7 g/dL (31.8-35.4); Mean Corpuscular Hemoglobin 30.4 pg (27.0-31.2); Mean Corpuscular Volume 90.2 fl (80-94); Mean Platelet Volume 7.5 fl (7.4-10.4); Monocytes # 0.4 K/mm3 (0.1-1.0); Monocytes % 5.5 % (1.7-9.3); Neutrophils # 4.3 K/mm3 (1.8-7.8); Neutrophils % 56.6 % (37.0-80.0); Platelet Count 284 K/mm3 (142-424); Red Blood Count 4.83 M/mm3 (4.60-6.20); Red Cell Distribution Width 13.6 % (11.5-17.5); White Blood Count 7.7 K/mm3 (4.8-10.8)
[2022-11-19 11:42] LABS: Hemoglobin A1C 5.1 % (4.0-6.0)
[2022-11-19 11:49] LABS: Chloride 97 mmol/L (98-107); Potassium 4.1 mmoL/L (3.5-5.1); Sodium 138 mmol/L (136-145)
[2022-11-19 11:51] LABS: Alanine Aminotransferase 22 U/L (12-78); Aspartate Amino Transferase 33 U/L (17-59); Blood Urea Nitrogen 13 mg/dl (9-20); Estimated Glomerular Filt Rate 102 ml/min (>60); GFR (African American) 124 ML/MIN (>60)
[2022-11-19 11:52] LABS: Albumin Level 3.8 g/dl (3.5-5.0); Albumin/Globulin Ratio 1.5 (1.1-1.8); Alkaline Phosphatase 83 U/L (38-126); Anion Gap 13.1 mEq/L (5-15); Bilirubin,Total 0.2 mg/dl (0.2-1.3); Calcium 8.5 mg/dl (8.4-10.2); Carbon Dioxide 32 mmol/L (22.0-30.0); Globulin 2.5 g/dL (1.3-3.2); Glucose 97 mg/dl (74-100); Total Protein,Serum 6.3 g/dl (6.3-8.2)
[2022-11-19 12:22] LABS: Thyroid Stimulating Hormone 0.44 uIU/mL (0.465-4.68)
[2022-11-19 12:58] LABS: Vitamin B12 292 pg/mL (239-931)
[2022-11-20 15:11] LABS: Albumin 3.5 g/dL (2.9-4.4); Alpha-1-Globulin 0.2 g/dL (0.0-0.4); Alpha-2-Globulin 0.6 g/dL (0.4-1.0); Gamma Globulin 1.2 g/dL (0.4-1.8); Protein, Total 6.5 g/dL (6.0-8.5)
[2022-11-21 00:06] LABS: Zinc 70 ug/dL (44-115)
[2022-11-22 12:10] LABS: Vitamin B1 135.9 nmol/L (66.5-200.0)
[2022-11-25 18:22] LABS: Arsenic, Blood 1 ug/L (0-9); Lead, Blood <1.0 ug/dL (0.0-3.4); Mercury, Blood <1.0 ug/L (0.0-14.9)
== END ==
PROVIDERS: PCP Internal Medicine; Visit Provider Nurse Practitioner Family
DX: M54.50 Low back pain, unspecified (principal); M79.661 Pain in right lower leg; M79.662 Pain in left lower leg; R73.9 Hyperglycemia, unspecified
CPT/HCPCS: 36415; 72100; 80053; 82175; 82525; 82607; 82746; 83036; 83655; 83825; 84155; 84165; 84425; 84443; 84630; 85025; 86334

== ENCOUNTER 2022-11-30 19:32 | Emergency (ER) | payer BC, SELFPAY ==
[2022-11-30 19:34] VITALS: BP 128/78; PULSE 87; RESP 18; TEMP 36.6; O2SAT 97; BMI 25.7
[2022-11-30 20:01] VITALS: BP 118/83; PULSE 86; O2SAT 94
--- NOTE | 2022-11-30 20:18 | HMH.EDEXTP ---
Discharge Plan Disposition Patient Disposition: Home, Self-Care Prescriptions Prescriptions: New prednisone [prednisone] 20 mg tablet 20 mg PO BID Qty: 10 0RF No Action gabapentin 300 mg capsule 300 mg PO BID ymwceyn-cbmxhbhsoq-EOZ-caff 1 EACH capsule 1 each PO Q4-6H Referrals Follow up/Referrals: Soren Elder MD [Primary Care Provider] - See instructions An Talavera MD [Staff Physician] - See instructions Clinical Impressions Clinical Impression: Lumbar radicular syndrome, Neurogenic claudication Instructions Patient Instructions: DI for Lumbar Radiculopathy Discharge ED Provider: Mannie (ED)Cade Extremity Problem HPI General Chief complaint: Extremity Problem,Nontraumatic Stated complaint: bilateral leg pain Time Seen by Provider: 11/30/22 20:05 Mode of Arrival: Ambulatory Source of Information: Patient and Medical Record Limitations: No Limitations Description of Symptoms (Recalled from ER Triage Doc. by RN): 52 M presents with 3-4 years of chronic bilateral leg pain which exacerbates with movement and increased walking. He is seeing Dr. Dickens with neurology here at [facility] for the symptoms. The pain is no worse and no better today. History of Present Illness HPI Narrative: pt has ongoing lower ext pain with possible neurogenic claudication has seen pcp and neuro and has pending mri and has had ncs - no fever/rash/trauma or cauda equina sx Complaint: extremity pain Onset (ago): week(s) Consistency: intermittent Location: lower extremity Radiation: distal Exacerbating factors: walking Associated symptoms: denies other symptoms Related Data Home Medications Medication Instructions Recorded Confirmed ppxgabq-ckdfhpixjn-SGT-caffeine 30 1 each PO Q4-6H Headache 12/15/21 11/30/22 mg-50 mg-325 mg-40 mg capsule gabapentin 300 mg capsule 300 mg PO BID Pain 11/19/22 11/30/22 Previous Rx's Medication Instructions Recorded prednisone 20 mg tablet 20 mg PO BID #10 tabs 11/30/22 Allergies Allergy/AdvReac Type Severity Reaction Status Date / Time Penicillins Allergy Verified 11/19/22 09:02 [facility] Disclaimer: The information contained in this section may have been updated after the patient was seen, as this information can be updated by other users. Medical History (Updated 11/30/22 @ 20:32 by Cade Chand (ED)MD) Anxiety Depression Kidney stone Migraine Surgical History History of spinal fusion Family History Other Cancer Coronary artery disease Heart attack Hypertension Stroke Social History Smoking Status: Never smoker second hand exposure: No alcohol intake: never substance use type: denies use current occupational status: other Travel in the last 8 weeks: None household members: spouse housing: house marital status: ROS Obtained: Yes All systems reviewed & no additional complaints except as documented Physical Exam General General appearance: alert Head Head exam: normocephalic Eye Eye exam: Present PERRL and EOMI ENT ENT exam: Present mucous membranes moist Neck Neck exam: Present trachea midline Respiratory Respiratory exam: Absent respiratory distress Cardiovascular Cardiovascular exam: Present regular rate Extremities Exam Extremities exam: Present normal inspection and full ROM; Absent calf tenderness Neurological Exam Neurological exam: Present alert, oriented X3, CN II-XII intact and other (knee reflex ok ); Absent motor sensory deficit Skin Skin exam: Absent rash Medical Decision Making Medical Records Medical records reviewed: Yes I reviewed the patient's medical records. Spenser Inquiry Pt receiving controlled substance: No Vital Signs: 11/30/22 19:34 11/30/22 20:01 Temperature 97.9 F Temperature Source Or
[2022-11-30 20:28] VITALS: BP 118/83; PULSE 64; RESP 19; TEMP 36.6; O2SAT 97
== END 2022-11-30 20:38 | disposition home or self-care (01) ==
PROVIDERS: Emergency Provider Emergency Medicine; PCP Internal Medicine
DX: M54.16 Radiculopathy, lumbar region (principal); M79.604 Pain in right leg; M79.605 Pain in left leg
CPT/HCPCS: 96372; 99283; 99284

== ENCOUNTER → 2022-12-11 10:47 | Outpatient (CLI) | payer BC, SELFPAY ==
--- NOTE | 2022-12-11 10:47 | MR_ITS ---
FINAL REPORT TECHNIQUE: Multiplanar MR without gadolinium enhancement CLINICAL HISTORY: stenosis, eval myelopathy lower back pain going down both legs , burning , tingling, and numbness x 5 years FINDINGS: Sagittal images show normal vertebral height. Alignment is normal. There is a small hemangioma noted in the S1 vertebral body, otherwise no abnormal marrow signal is seen. T12-L1: Unremarkable L1-2: Unremarkable L2-3: Unremarkable L3-4: Mild annular disc bulge with mild facet arthropathy bilaterally. L4-5: No focal disc protrusion, mild facet arthropathy and mild bilateral neural foraminal narrowing. L5-S1: Mild annular disc bulge with moderate right and mild left facet arthropathy, and mild right neural foraminal narrowing. IMPRESSION: Cyom-do-xhinwyyp degenerative change from the L3-4 through L5-S1 levels as described above. Reviewed, Interpreted and Dictated by Alesia Jarrett MD Transcribed by Carmen Kiran Authenticated and [facility]
== END ==
LOC: RAD 10:47
PROVIDERS: PCP Internal Medicine; Visit Provider Nurse Practitioner Family
DX: M54.50 Low back pain, unspecified (principal); M79.661 Pain in right lower leg; M79.662 Pain in left lower leg
CPT/HCPCS: 72148; 76376

== ENCOUNTER 2022-12-24 09:40 | Emergency (ER) | payer BC, SELFPAY ==
[2022-12-24 09:40] VITALS: BP 128/89; PULSE 80; RESP 16; TEMP 36.6; O2SAT 95; BMI 25.7
--- NOTE | 2022-12-24 09:51 | XR_ITS ---
FINAL REPORT CLINICAL HISTORY: injury rolled left ankle last night felt a pop and a snap swelling and bruising noted COMPARISON: None FINDINGS: LEFT ANKLE Three views demonstrate no acute fracture or dislocation. The visualized joint spaces are normally aligned. The ankle mortise is intact. There is a small joint effusion. There is moderate soft tissue swelling over the lateral malleolus. IMPRESSION: Small joint effusion and soft tissue swelling without acute bony abnormality. Reviewed, Interpreted and Dictated by Smooth Huffman MD Transcribed by Jagruti Rodrigues Authenticated and [facility]
--- NOTE | 2022-12-24 09:51 | HMH.EDGENADL ---
Discharge Plan Disposition Patient Disposition: Home, Self-Care Condition: Fair Prescriptions Prescriptions: New naproxen [Naprosyn] 500 mg tablet 500 mg PO BID PRN (Reason: pain) Qty: 20 0RF No Action gabapentin 300 mg capsule 300 mg PO BID prednisone [prednisone] 20 mg tablet 20 mg PO BID Qty: 10 0RF cvfmkhd-cingchowzg-PVX-caff 1 EACH capsule 1 each PO Q4-6H Referrals Follow up/Referrals: Soren Elder MD [Primary Care Provider] - See instructions Clinical Impressions Clinical Impression: Left ankle sprain Discharge ED Provider: Bobo Velazquez General Adult HPI General Chief complaint: Fall Stated complaint: Fall 12/23 LT ankle pain Time Seen by Provider: 12/24/22 10:19 Mode of Arrival: Ambulatory Source of Information: Patient Limitations: No Limitations Description of Symptoms (Recalled from ER Triage Doc. by RN): 52 yo M presents to ED with left ankle pain. pt reports that he was chasing a cow down yesterday and rolled his left ankle. History of Present Illness HPI narrative: This is a 52-year-old white male who twisted his left ankle chasing a cow last night. Patient states he has difficulty with weightbearing. Patient denies any other trauma Related Data Home Medications Medication Instructions Recorded Confirmed fucpyho-ktuloqyjcj-GAB-caffeine 30 1 each PO Q4-6H Headache 12/15/21 12/16/22 mg-50 mg-325 mg-40 mg capsule gabapentin 300 mg capsule 300 mg PO BID Pain 11/19/22 12/16/22 Previous Rx's Medication Instructions Recorded prednisone 20 mg tablet 20 mg PO BID #10 tabs 11/30/22 naproxen 500 mg tablet (Naprosyn) 500 mg PO BID PRN pain #20 tabs 12/24/22 Allergies Allergy/AdvReac Type Severity Reaction Status Date / Time Penicillins Allergy Verified 12/16/22 13:06 [facility] Disclaimer: The information contained in this section may have been updated after the patient was seen, as this information can be updated by other users. Medical History Anxiety Depression Kidney stone Migraine Surgical History History of spinal fusion Family History Other Cancer Coronary artery disease Heart attack Hypertension Stroke Social History Smoking Status: Never smoker second hand exposure: No alcohol intake: never substance use type: denies use current occupational status: other Travel in the last 8 weeks: None household members: spouse housing: house marital status: ROS Obtained: Yes All systems reviewed & no additional complaints except as documented Skin no rash or lesions HEENT no runny nose sore throat Pulmonary no cough or shortness of breath Cardiovascular no chest pain pressure heaviness GI no abdominal pain nausea or vomiting no dysuria pyuria hematuria Musculoskeletal see HPI Endocrine no polydipsia polyuria or polyphasia Psych no SI or HI The rest of the systems were reviewed and found to be negative Physical Exam Narrative Physical exam: Skin: Warm and dry HEENT: Normocephalic atraumatic extract muscles are intact pupils are equal and reactive to light Neck: Supple nontender Lungs: Clear to auscultation Heart: Regular rate and rhythm Abdomen: NABS soft nontender Extremities: Examination of the left ankle reveals tenderness along the lateral malleolus there is also some mild edema. No ecchymosis negative drawer sign distal CMS intact Neurologic: No unilateral weakness or numbness Lymphatic: No cervical or inguinal adenopathy Musculoskeletal: No tenderness of the dorsal or lumbar spine Psych: No SI or HI General General appearance: alert Respiratory Respiratory exam: Present normal lung sounds bilaterally Cardiovascular Cardiovascular exam: Present regular rate Neurological E
[2022-12-24 10:25] VITALS: BP 128/89; PULSE 80; RESP 16; TEMP 36.7
== END 2022-12-24 10:27 | disposition home or self-care (01) ==
PROVIDERS: Emergency Provider Emergency Medicine; PCP Internal Medicine
DX: S93.402A Sprain of unspecified ligament of left ankle, initial encounter (principal); F41.9 Anxiety disorder, unspecified; F32.A Depression, unspecified; X50.1XXA Overexertion from prolonged static or awkward postures, initial encounter
CPT/HCPCS: 73610; 99283; 99284

== ENCOUNTER → 2022-12-29 14:54 | Outpatient (POV) | payer BC, SELFPAY ==
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
[2022-12-29 15:25] VITALS: BP 139/84; PULSE 71; RESP 18; O2SAT 97; BMI 25.7
== END ==
PROVIDERS: PCP Internal Medicine; Visit Provider Nurse Practitioner Family
DX: S93.402A Sprain of unspecified ligament of left ankle, initial encounter (principal); M54.50 Low back pain, unspecified; M51.16 Intervertebral disc disorders with radiculopathy, lumbar region; M47.26 Other spondylosis with radiculopathy, lumbar region; M50.10 Cervical disc disorder with radiculopathy, unspecified cervical region
CPT/HCPCS: 99202; G0463

== ENCOUNTER 2023-01-01 11:03 | Outpatient (RCR) | payer BC, SELFPAY | END 2023-01-01 12:05 | disposition home or self-care (01) | LOC: PT 11:03 | PROVIDERS: Visit Provider Orthopaedic Surgery | DX: M25.572 Pain in left ankle and joints of left foot (principal); S93.402A Sprain of unspecified ligament of left ankle, initial encounter | CPT/HCPCS: 97760 ==

== ENCOUNTER 2023-01-13 13:21 | Day surgery (SDC) | payer BC, SELFPAY ==
[2023-01-13 13:26] VITALS: BP 135/85; PULSE 66; RESP 18; TEMP 36.6; O2SAT 98; BMI 25.7
[2023-01-13 13:42] VITALS: BP 127/80; PULSE 66; RESP 18; O2SAT 98
[2023-01-13 13:44] VITALS: BP 127/80; PULSE 66; RESP 18; O2SAT 98
[2023-01-13 13:50] VITALS: BP 133/85; PULSE 69; RESP 18; O2SAT 98
--- NOTE | 2023-01-13 13:50 | P.PCN_ITS ---
Procedure Date: 01/13/23 Time: 13:30 Anesthesiologist:: Jorden Valdes CRNA Complications:: None Pre-procedure Diagnosis:: Degenerative disc lumbar spine multilevels. Lumbar radiculopathy. Lumbar spondylosis. Lumbar multi level facet arthropathy. Post-procedure Diagnosis:: Same. Indications for Procedure:: Very pleasant 52-year-old male that comes our clinic today for lumbar medial branch blocks/facet injections L4-5, L5-S1 bilaterally. Patient complains of low back pain when standing. Patient also complains of pain with flexion, extension, left and right rotation. He rates his pain 7/10. Patient also complaining of some bilateral hip and leg radicular symptoms at times. Procedure Details:: Informed consent was obtained and the risk and benefits of the procedure was explained to the patient. Patient was taken to the procedure room where noninvasive monitors were placed, including noninvasive blood pressure cuff as well as pulse oximeter. The area over the lumbar spine was cleansed using chlorhexidine as a cleansing solution. I anesthetized the skin and subcutaneous tissues with 1% Lidocaine. I placed 22-gauge spinal needles into the facet joint/ medial branches of L4-L5, and L5-S1] bilaterally. Needle placement was c onfirmed with fluoroscopy. After confirmation of needle placement, each site was injected with 1 mL of 1% lidocaine and 0.25 % Marcaine and 10 mg of Depo-Medrol. A total of 80 mg of depo medrol was used for bilateral medial branch blocks of L4-L5, and L5-S1] bilaterally. Patient tolerated the procedure without difficulty. There were no complications. Plan and Disposition:: Patient was discharged without incident.
== END 2023-01-13 13:50 | disposition home or self-care (01) ==
PROVIDERS: PCP Internal Medicine; Visit Provider Nurse Anesthetist, Certified Registered
DX: M47.896 Other spondylosis, lumbar region (principal); M51.16 Intervertebral disc disorders with radiculopathy, lumbar region
CPT/HCPCS: 64493; 64494; J1040

== ENCOUNTER → 2023-01-28 12:51 | Outpatient (POV) | payer BC, SELFPAY ==
[2023-01-28 13:04] VITALS: BP 148/76; PULSE 85; RESP 20; BMI 25.7
--- NOTE | 2023-01-28 14:58 | EXP.PAIN.SOA ---
[facility] Pain Management SOAP Note Subjective:: Patient is a pleasant 52-year-old male who presents today for follow-up of lumbar medial branch block bilaterally L4-L5 and L5-S1 on 01/13/2023. We are currently treating the patient for low back pain, degenerative disc disease of lumbar spine with lumbar radiculopathy symptoms, lumbar facet arthropathy, lumbar spondylosis, degenerative disc disease of cervical spine with cervical radiculopathy symptoms, left ankle pain. Today he states his pain is 3 out of 10. Patient denies any new trauma or injury. Patient denies any change location or type of pain he experiences. He does state that he did not notice any additional relief following this injection. He does state in the past he has occasionally noticed a reaction to the steroids to where he gets a headache. He states after this initial injection that he did feel like he had a headache for 2 days. He does state that he continues to have pain in his low back and describes it as a throbbing, burning sensation with pressure that is worse with increased activity. Patient has previously had back surgery done by Dr. Dillon in around 2010. He states he has not been back to see this office since around 2017 or 18. He does state at that time that Dr. Dillon had talked about doing additional surgeries in his cervical spine however he left it up to the patient when he would like to proceed forward. From our last visit patient states that he was told that he would be in his boot for his left ankle for 6 weeks. He has tried and failed conservative therapy such as oral medications, heat and ice, topicals, physical therapy, at home stretching and exercise for longer than 6 weeks. He is currently managed with butal twice a day, gabapentin 300 mg twice a day and tramadol 50 mg from his primary care doctor. He does state that he was questioning whether or not if his gabapentin needed to be increased and that Dr. Elder has not mentioned anything at this time. He denies any side effects from this medication. His Spenser is [id number]. Its been reviewed and appropriate. Review of Systems: General: No recent weight changes, no fever, no sleep disturbances Respiratory: No cough, no shortness of air, no recurring pulmonary infections Cardiovascular/peripheral vascular: No chest pain, no palpitations, no edema, no shortness of breath Gastrointestinal: No new onset incontinence, normal bowel movements reported Genitourinary: No new onset incontinence Musculoskeletal: Neck pain, low back pain Psychiatric: [Normal mood/affect] Neurological: [Denies weakness in extremities], [denies balance issues] Objective:: Physical Exam: General: Alert and oriented x3, no acute distress, pleasant and cooperative Lungs: Respirations even and unlabored, symmetrical chest expansion Eyes: PERRL Musculoskeletal: Flexion and extension of cervical, lumbar [spine] somewhat guarded secondary to pain, [antalgic gait noted] Neurological: Speech clear, no gross sensory deficit Assessment:: Low back pain, degenerative disc disease of cervical and lumbar spine with cervical and lumbar radiculopathy symptoms, lumbar facet arthropathy, lumbar spondylosis, left ankle pain, chronic pain syndrome Plan:: Patient is experiencing significant pain at his cervical and lumbar spine. I will refer the patient back to neurosurgery with Dr. Dillon for evaluation for possible surgical intervention. I have also discussed with the patient that he may benefit from additional injections such as epidurals. I have also discussed with the patient that he may be a beneficial candidate for an intrathecal pain pump trial. Risk and benefits and educational handouts were given to the patient during today's visit. I have also counseled the patient that he may benefit down the road from an occipital nerve block or even Botox injections for migraines. I have counseled the patient to talk to Dr. Elder regarding increasing his gabapentin 300 mg to 3 times
== END ==
LOC: SC.PAIN 12:52
PROVIDERS: PCP Internal Medicine; Visit Provider Nurse Practitioner Family
DX: M50.10 Cervical disc disorder with radiculopathy, unspecified cervical region (principal); M51.16 Intervertebral disc disorders with radiculopathy, lumbar region; M47.26 Other spondylosis with radiculopathy, lumbar region; M25.572 Pain in left ankle and joints of left foot; G89.4 Chronic pain syndrome
CPT/HCPCS: 99212; G0463

== ENCOUNTER 2023-02-07 11:46 | Emergency (ER) | payer BC, SELFPAY ==
[2023-02-07] VITALS (8 sets, daily range): BP systolic 106–140; BP diastolic 63–89; PULSE 60–86; RESP 19; TEMP 36.7–36.8; O2SAT 96–99; BMI 25.7
--- NOTE | 2023-02-07 12:14 | HMH.EDGENADL ---
Discharge Plan Disposition Patient Disposition: Home, Self-Care Prescriptions Prescriptions: New prochlorperazine maleate [Compazine] 10 mg tablet 10 mg PO Q8H PRN (Reason: nausea and vomiting and headache) 7 Days Qty: 20 0RF Rx Instructions: Please take with 800 mg of ibuprofen and 25 mg of Benadryl and expect sedation No Action gabapentin 300 mg capsule 300 mg PO BID scaeamd-bucllrfqfj-GUG-caff 1 EACH capsule 1 each PO Q4-6H Referrals Follow up/Referrals: Soren Elder MD [Primary Care Provider] - See instructions Activity Restrictions/Add. Instructions Additional Instructions/Restrictions: I advise that you follow-up with a neurologist to discuss your chronic migraines. Return to the emergency department any worsening symptoms. Clinical Impressions Clinical Impression: Migraine Discharge ED Provider: Virginia Argueta General Adult HPI General Chief complaint: Headache Stated complaint: headache, upset stomach Time Seen by Provider: 02/07/23 12:05 Mode of Arrival: Family Vehicle Source of Information: Patient and Spouse Limitations: No Limitations Description of Symptoms (Recalled from ER Triage Doc. by RN): Pt presents to ER with c/o migraine headache with nausea and vomiting. States it began @ 0200. He saw his PCP Dr. Elder yesterday (02/06) and was given a low dose steroid. However, pt and his report steriods and toradol always make the headaches worse . He is having light sensitivity and the pain begins at the back of his head and radiates to the front of his head and left eye. Denies any trouble with his vision. He does for a neurologist and has taken Fiocet for his migraince but he is out and insurance will not pay for more per pt. He does not state this is the worst heache of my life . Though, pt does report stabbing in my eye with his pain description. He does have a hx of spinal fusion and herniated discs. History of Present Illness HPI narrative: Patient is a 52-year-old male here with a migraine. States he has a chronic history of headaches and this is very similar to ones he has had in the past. There is been no thunderclap component to this and it slowly worsened since . Went to his doctor yesterday where he was given shot of some medications that would include Toradol and steroids which he states always make him worse. It is slowly worsened since yesterday. He is not on any daily suppressive medications for his migraines and states he has migraines less than half of each month. No fevers or chills neurologic symptoms meningismus but he does have some photophobia which she states is at his baseline. Related Data Home Medications Medication Instructions Recorded Confirmed utgztns-zspwpvgiff-VEC-caffeine 30 1 each PO Q4-6H Headache 12/15/21 01/27/23 mg-50 mg-325 mg-40 mg capsule gabapentin 300 mg capsule 300 mg PO BID Pain 11/19/22 01/27/23 Previous Rx's Medication Instructions Recorded prochlorperazine maleate 10 mg 10 mg PO Q8H PRN nausea and 02/07/23 tablet (Compazine) vomiting and headache 7 days #20 tabs Allergies Allergy/AdvReac Type Severity Reaction Status Date / Time Penicillins Allergy Verified 01/27/23 11:38 [facility] Disclaimer: The information contained in this section may have been updated after the patient was seen, as this information can be updated by other users. Medical History Anxiety Depression Kidney stone Migraine Surgical History History of spinal fusion Family History Other Cancer Coronary artery disease Heart attack Hypertension Stroke Social History Smoking Status: Former smoker second hand exposure: No alcohol intake: never substance use type: denies use curr
--- NOTE | 2023-02-07 13:47 | PC.NURSE ---
PT RECEIVED WARM BLANKET AND PILLOW CALL LIGHT AT BS
--- NOTE | 2023-02-07 14:00 | PC.NURSE ---
rounded on pt, he is still having pain and is worried it will all come back . MD notified of pt's concerns and order Magnesium.
--- NOTE | 2023-02-07 14:15 | PC.NURSE ---
DR BERMAN IS SPEAKING WITH HOSPITALIST AT THIS TIME.
== END 2023-02-07 15:23 | disposition home or self-care (01) ==
PROVIDERS: Emergency Provider Student in an Organized Health Care Education/Training Program; PCP Internal Medicine
DX: G43.909 Migraine, unspecified, not intractable, without status migrainosus (principal); R11.2 Nausea with vomiting, unspecified; F41.9 Anxiety disorder, unspecified; F32.A Depression, unspecified; Z87.891 Personal history of nicotine dependence
CPT/HCPCS: 96361; 96374; 96375; 99284; J0131; J3475

== ENCOUNTER → 2023-03-20 13:42 | Outpatient (POV) | payer BC, SELFPAY ==
--- NOTE | 2023-03-20 14:35 | EXP.PAIN.SOA ---
[facility] Pain Management SOAP Note Subjective:: This patient is a very pleasant 52-year-old male that comes our clinic today for follow-up visit after receiving medial branch block/facet injections lumbar L4-5, L5-S1 bilaterally. Patient reports minimal to no relief. Even numbing medicine did not render much relief in terms of his low back pain that he describes as constant, dull, aching. Patient also complains of bilateral hip and leg radicular symptoms at times. Patient informs me he has appointment with Dr. Dillon April 09 regarding cervical and lumbar back pain. Patient is status post anterior cervical discectomy and fusion May 2011. He is continue to have some cervical neck pain as well as arm radicular symptoms that will be discussed with Dr. Dillon. Patient currently being managed by his PCP with butalbital/aspirin/caffeine. Gabapentin 3 mg 1 p.o. twice daily. This is from his PCP as well. Patient will return to see us in our clinic after his consultation with Dr. Dillon on April 09. We discussed intrathecal pain pump for both cervical and lumbar pain. He is very interested. We will discuss further at his next visit. This is assuming no surgery indicated by Dr. Dillon Objective:: Patient is awake alert [place] x3. In no acute distress. Flexion-extension lumbar spine and cervical spine limited secondary to pain. Deep tendon reflexes lower extremities normal. Upper extremities somewhat attempted. Patient has normal gait. Assessment:: Degenerative disc lumbar spine multilevels. Lumbar radiculopathy. Lumbar spondylosis. Multilevel lumbar facet arthropathy. Degenerative disc cervical spine multilevels. Cervical postlaminectomy syndrome. Plan:: Patient will return to see us after his consultation with Dr. Dillon on April 09. We will further discuss intrathecal pain pump management at that time. His Spenser #[id number] has been reviewed and appropriate. [facility] Disclaimer: The information contained in this section may have been updated after the patient was seen, as this information can be updated by other users. Medical History Anxiety Depression Kidney stone Migraine Surgical History History of spinal fusion Family History Other Cancer Coronary artery disease Heart attack Hypertension Stroke Social History Smoking Status: Former smoker second hand exposure: No alcohol intake: never substance use type: denies use current occupational status: other Travel in the last 8 weeks: None household members: spouse housing: house marital status:
[2023-03-20 15:20] VITALS: BP 125/77; PULSE 64; RESP 18; O2SAT 98; BMI 25.7
== END ==
PROVIDERS: PCP Internal Medicine; Visit Provider Nurse Anesthetist, Certified Registered
DX: M51.16 Intervertebral disc disorders with radiculopathy, lumbar region (principal); M47.26 Other spondylosis with radiculopathy, lumbar region; M50.90 Cervical disc disorder, unspecified, unspecified cervical region; M96.1 Postlaminectomy syndrome, not elsewhere classified
CPT/HCPCS: 99212; G0463

== ENCOUNTER 2023-04-09 12:20 | Emergency (ER) | payer BC, SELFPAY ==
[2023-04-09 12:30] VITALS: BP 120/81; PULSE 80; RESP 20; TEMP 36.8; O2SAT 98; BMI 26.2
--- NOTE | 2023-04-09 12:47 | EXP.UTC ---
Discharge Plan Disposition Patient Disposition: Home, Self-Care Condition: Good Prescriptions Prescriptions: New benzonatate 100 mg capsule 100 mg PO TID PRN (Reason: cough) Qty: 30 0RF guaifenesin [Mucinex] 600 mg tablet extended release 12hr 1,200 mg PO BID PRN (Reason: cough) Qty: 20 0RF azithromycin [Zithromax Z-Ricardo] 250 mg tablet See Rx Instructions .ROUTE .COMPLEX 5 Days Qty: 6 0RF Rx Instructions: For 250 mg dose pack: take 500 mg today (day 1), then 250 mg for 4 days (days 2-5) No Action gabapentin 300 mg capsule 300 mg PO BID prochlorperazine maleate [Compazine] 10 mg tablet 10 mg PO Q8H PRN (Reason: nausea and vomiting and headache) 7 Days Qty: 20 0RF Rx Instructions: Please take with 800 mg of ibuprofen and 25 mg of Benadryl and expect sedation elpzxit-xlzpkbnygl-XOV-caff 1 EACH capsule 1 each PO Q4-6H Referrals Follow up/Referrals: Soren Elder MD [Primary Care Provider] - See instructions Activity Restrictions/Add. Instructions Additional Instructions/Restrictions: Start antibiotic today. Be sure to complete entire prescription even if feeling better Monitor temp. Tylenol every 4 hours as needed and / or ibuprofen every 6 hours as needed ( As long as your primary care physician has told you that it ok to take both. For fever/aches/pains ER if no less than 101 despite Tylenol or Motrin Humidifier/vaporizer or hot steamy shower Inhaler every 4-6 hours as needed like we discussed. If unsure how to use it, ask pharmacist to demonstrate how. Should help open airways and improve cough, wheezing, and shortness of breath Mucinex during the day for your cough and cough suppressant only at night. Be sure to drink lots of water. *Tessalon Perles will not cause drowsiness but use at bedtime to help stop cough so that you may get some rest. Follow up IMMEDIATELY for new or worsening of symptoms OR no noticeable improvement over the next 48-72 hours. 911 immediately for any life threatening symptoms such as chest pain or difficulty breathing Clinical Impressions Clinical Impression: Bronchitis Sinusitis Qualifiers: Sinusitis location: unspecified location Chronicity: unspecified Qualified Code(s): J32.9 - Chronic sinusitis, unspecified Instructions Patient Instructions: Sinusitis, Acute Bronchitis, DI for Sinusitis Discharge ED Provider: Blanca Ontiveros [facility] General Stated complaint: Congestion, vomiting, cough Mode of Arrival: Ambulatory Source of Information: Patient Limitations: No Limitations Time Seen by Provider: 04/09/23 12:47 Description of Symptoms (Recalled from Triage Doc. by RN): PATIENT C/O CONGESTION, COUGH, HEADACE, SINUS DRAINAGE AND VOMITING SINCE YESTERDAY HEENT Symptoms (Recalled from RN notes): Yes Resp Symptoms (Recalled from RN notes): Yes Skin Symptoms (Recalled from RN notes): No MS Symptoms (Recalled from RN notes): No Functional Status (Recalled from RN notes): WNL History of Present Illness Provider Complaint: Patient states that he has been having sinus congestion, drainage in the back of his throat, cough, sinus drainage States that yesterday the drainage started making his stomach upset and he was vomiting up some of the mucous States today he wasnt feeling any better so he came in to get checked Related Data Home Medications Medication Instructions Recorded Confirmed fnvpvtx-odduqvreff-SGG-caffeine 30 1 each PO Q4-6H Headache 12/15/21 03/20/23 mg-50 mg-325 mg-40 mg capsule gabapentin 300 mg capsule 300 mg PO BID Pain 11/19/22 03/20/23 Previous Rx's Medication Instructions Recorded prochlorperazine maleate 10 mg 10 mg PO Q8H PRN nausea and 02/07/23 tablet (Compazine) vomiting and headache 7 days #20 tabs azithromycin 250 mg tablet See Rx Instructions PO .COMPLEX 5 04/09/23 (Zithromax Z-Ricardo) days #6 tabs benzonatate 100 mg capsule 100 mg PO TID PRN cough #30 caps 10
[2023-04-09 12:56] VITALS: BP 120/81; PULSE 80; RESP 20; TEMP 36.8; O2SAT 98
== END 2023-04-09 13:08 | disposition home or self-care (01) ==
PROVIDERS: Emergency Provider Nurse Practitioner; PCP Internal Medicine
DX: J20.9 Acute bronchitis, unspecified (principal); J01.90 Acute sinusitis, unspecified; F41.9 Anxiety disorder, unspecified; F32.A Depression, unspecified; Z87.891 Personal history of nicotine dependence
CPT/HCPCS: 99212; 99214; G0463

== ENCOUNTER → 2023-05-26 13:43 | Outpatient (CLI) | payer BC, SELFPAY ==
--- NOTE | 2023-05-26 13:48 | XR_ITS ---
FINAL REPORT CLINICAL HISTORY: Bilat foot pain. FINDINGS: 3 views of the right foot were obtained. There is no acute fracture or dislocation. The joint spaces are intact. The soft tissues are unremarkable. IMPRESSION: No acute process. Reviewed, Interpreted and Dictated by Hermes Wade III, MD Transcribed by Luis Prescott Authenticated and [facility]
--- NOTE | 2023-05-26 13:48 | XR_ITS ---
FINAL REPORT CLINICAL HISTORY: Bilat foot pain. Sprained left foot/tendon injury December 2022. Has knot on medial side. FINDINGS: 3 views of the left foot were obtained. There is no acute fracture or dislocation. The joint spaces are intact. The soft tissues are unremarkable. IMPRESSION: No acute process. Reviewed, Interpreted and Dictated by Hermes Wade III, MD Transcribed by Luis Prescott Authenticated and [facility]
== END ==
PROVIDERS: PCP Internal Medicine; Visit Provider Nurse Practitioner Family
DX: M79.672 Pain in left foot (principal); M79.671 Pain in right foot
CPT/HCPCS: 73630

== ENCOUNTER 2023-07-15 16:19 | Emergency (ER) | payer BC, SELFPAY ==
[2023-07-15 16:40] VITALS: BP 125/74; PULSE 74; RESP 18; TEMP 36.8; O2SAT 98; BMI 26.6
--- NOTE | 2023-07-15 16:58 | ED_ITS ---
Discharge Plan Disposition Patient Disposition: Home, Self-Care Condition: Good Prescriptions Prescriptions: No Action tizanidine 4 mg tablet PO Patient Comments: TAKE ONE TABLET BY MOUTH EVERY 8 HOURS NEEDED FOR SPASMS Take mainly AT night gabapentin 300 mg capsule 300 mg PO BID prochlorperazine maleate [Compazine] 10 mg tablet 10 mg PO Q8H PRN (Reason: nausea and vomiting and headache) 7 Days Qty: 20 0RF Rx Instructions: Please take with 800 mg of ibuprofen and 25 mg of Benadryl and expect sedation benzonatate 100 mg capsule 100 mg PO TID PRN (Reason: cough) Qty: 30 0RF guaifenesin [Mucinex] 600 mg tablet extended release 12hr 1,200 mg PO BID PRN (Reason: cough) Qty: 20 0RF azithromycin [Zithromax Z-Ricardo] 250 mg tablet See Rx Instructions .ROUTE .COMPLEX 5 Days Qty: 6 0RF Rx Instructions: For 250 mg dose pack: take 500 mg today (day 1), then 250 mg for 4 days (days 2-5) kavezrc-lgohfovuzq-IDI-caff 1 EACH capsule 1 each PO Q4-6H Referrals Follow up/Referrals: Soren Elder MD [Primary Care Provider] - See instructions Activity Restrictions/Add. Instructions Additional Instructions/Restrictions: *Monitor Temp, Over the counter Motrin or Tylenol as directed/as needed Tylenol every 4 hours and Motrin every 6 hours (as long as your family doctor has told you that you can take it) for fever or pain. and straight to ER if unable to lower temp less than 101.0 after medication given *Warm salt water gargles may help to soothe the throat *Throat Lozenges? *Warm fluids like tea with honey may help to soothe the throat? *Sleep elevated *Humidifier/Vaporizer Your throat swab was sent for culture. Those results are typically sent to your primary care. Be sure to follow up in 2-3 days with your family doctor/primary care physician if no improvement so they can review those result and treat if necessary. If you don?t have a primary care doctor, I recommend you get one but in the mean time, you will have to return to a walk in clinic Follow up IMMEDIATELY for new or worsening symptoms or no Noticeable improvement over the next 48-72 hours. 911 for difficulty breathing or swallowing You were tested for today for COVID19 your test result should be back in the next 24-48 hours, you may check your results on the [facility] My Health Panel if your COVID or Flu is positive you must Quarantine for 5 days Clinical Impressions Clinical Impression: Viral syndrome Instructions Patient Instructions: Sore Throat, DI for Viral Syndrome, DI for Fever (Symptom) -- Adult Discharge ED Provider: Blanca Ontiveros [facility] [place] General Stated complaint: ba chills cough flu strep exposure cough congestio Mode of Arrival: Ambulatory Source of Information: Patient Limitations: No Limitations Time Seen by Provider: 07/15/23 16:58 Description of Symptoms (Recalled from Triage Doc. by RN): Pt stated he was exposed to flu, strep, and covid. His symptoms are RODRIGUEZ, sore throat, weakness, coughing, runny nose, and body aches. HEENT Symptoms (Recalled from RN notes): Yes Resp Symptoms (Recalled from RN notes): No Skin Symptoms (Recalled from RN notes): No MS Symptoms (Recalled from RN notes): No Functional Status (Recalled from RN notes): n/a History of Present Illness Provider Complaint: Patient states that he has been exposed to flu, COVID, and strep throat States that he has been having body aches, chills, sore throat cough and runny nose States that today he wasnt feeling any better so he came in to get tested since he has had family members that have been sick Related Data Home Medications Medication Instructions Recorded Confirmed tecsthk-fqffvmzxlx-VEY-caffeine 30 1 each PO Q4-6H Headache 12/15/21 05/26/23 mg-50 mg-325 mg-40 mg capsule gabapentin 300 mg capsule 300 mg PO BID Pain 11/19/22 05/26/23 tizanidine 4 mg tablet mg PO 05/26/23 05/26/23 Previous Rx's Medication Instructions Recorded prochlorperazine maleate 10 mg 10 mg PO Q8H PRN nausea and 02/07/23 tablet (Compazine) vomiting and headache 7 days #20 tabs azithromycin 250 mg tablet See Rx Instructions PO .COMPLEX 5 04/09/23 (Zithromax Z-Ricardo) days #6 tabs benzonatate 100 mg capsule 100 mg PO TID PRN cough #30 caps 04/09/23 guaifenesin 600 mg tablet, 1,200 mg PO BID PRN cough #20 tabs 04/09/23 extended release 12 hr (Mucinex) Allergies Allergy/AdvReac Type Severity Reaction Status Date / Time Corticosteroids Allergy Unknown Verified 06/15/23 13:14 (Glucocorticoids) allergy reaction Penicillins Allergy Unknown Verified 06/15/23 13:14 allergy reaction Worker's Comp Is this a Worker's Comp case?: No [facility] Disclaimer: The information contained in this section may have been updated after the patient was seen, as this information can be updated by other users. Medical History Anxiety Depression Kidney stone Migraine Surgical History History of spinal fusion Family History Other Cancer Coronary artery disease Heart attack Hypertension Stroke Social History Smoking Status: Former smoker tobacco type: smokeless tobacco second hand exposure: No alcohol intake: never substance use type: denies use current occupational status: other Travel in the last 8 weeks: None household members: spouse housing: house marital status: ROS Obtained: Yes All systems reviewed & no additional complaints except as documented and Yes Systems reviewed as appropriate & no additional complaints except as documented Constitutional Constitutional: Reports system reviewed and no additional complaints, except as documented, Reports as per HPI, Reports body ache, Reports chills and Reports headache(s) ENT Ears, Nose, Mouth, and Throat: Reports system reviewed and no additional complaints, except as documented, Reports as per HPI, Reports headache(s), Reports nasal congestion, Reports nasal discharge and Reports sore throat Cardiovascular Cardiovascular: Reports system reviewed and no additional complaints, except as documented and Reports as per HPI Respiratory Respiratory: Reports system reviewed and no additional complaints, except as documented, Reports as per HPI, Denies shortness of breath, Denies chest congestion and Reports cough Gastrointestinal Gastrointestingal: Reports system reviewed and no additional complaints, except as documented and as per HPI Neurologic Neurologic: Reports headache(s) Physical Exam General General appearance: alert and in no apparent distress ENT ENT exam: Present mucous membranes moist Expanded ENT Exam Nose exam: Absent sinus tenderness Throat exam: Present tonsillar erythema Respiratory Respiratory exam: Present normal lung sounds bilaterally; Absent respiratory distress or wheezes Cardiovascular Cardiovascular exam: Present regular rate, normal rhythm and normal heart sounds Abdominal Exam Abdominal exam: Present soft and normal bowel sounds; Absent distention or tenderness Neurological Exam Neurological exam: Present alert, oriented X3 and normal gait Medical Decision Making Spenser Inquiry Pt receiving controlled substance: No Spenser was queried for this patient: No Vital Signs: 07/15/23 16:40 Temperature 98.3 F Temperature Source Oral Pulse Rate [Right Radial] 74 Respiratory Rate 18 Blood Pressure [Right Arm] 125/74 Blood Pressure Mean [Right Arm] 91 Blood Pressure Source [Right Arm] Automatic Cuff Blood Pressure Position [Right Arm] Sitting 02 Sat by Pulse Oximetry 98 Oxygen Delivery Method Room Air Lab Data Lab results reviewed: Yes I reviewed the patient's lab results. Orders (Tests/Meds): ORDERS Category Date Time Status Covid-19 Nasal PCR ([facility]) Routine Lab 07/15/23 16:40 Received
[2023-07-15 17:03] LABS: UTC Influenza A Antigen Negative (Negative); UTC Influenza B Antigen Negative (Negative); UTC Strep Screen (Rapid) Negative (Negative)
[2023-07-15 17:15] VITALS: BP 125/74; PULSE 74; RESP 18; TEMP 36.8; O2SAT 98
== END 2023-07-15 17:15 | disposition home or self-care (01) ==
PROVIDERS: Emergency Provider Nurse Practitioner; PCP Internal Medicine
DX: R51.9 Headache, unspecified (principal); R05.9 Cough, unspecified; R09.81 Nasal congestion; R07.0 Pain in throat; R53.1 Weakness; M79.18 Myalgia, other site; Z20.822 Contact with and (suspected) exposure to COVID-19; Z20.818 Contact with and (suspected) exposure to other bacterial communicable diseases; Z87.891 Personal history of nicotine dependence
CPT/HCPCS: 87635; 87804; 87880; 99212; 99213; G0463

== ENCOUNTER 2023-07-17 16:49 | Outpatient (CLI) | payer BC, SELFPAY ==
[2023-07-17 18:58] LABS: Amphetamine/Metha Screen,Urine Negative ng/ml (<1000); Barbiturates Screen,Urine Positive ng/ml (<200)
[2023-07-17 18:59] LABS: Benzodiazepines Screen,Urine Negative ng/ml (<200)
[2023-07-17 19:00] LABS: Cannabinoid Screen,Urine Negative ng/ml (<50); Cocaine Screen,Urine Negative ng/ml (<300)
[2023-07-17 19:01] LABS: Methadone Screen,Urine Negative ng/ml (<300)
[2023-07-17 19:05] LABS: Opiate Screen,Urine Positive ng/ml (<300)
[2023-07-17 19:06] LABS: Phencyclidine Screen,Urine Negative ng/ml (<25)
== END 2023-07-17 23:59 ==
LOC: LAB.DROPOF 16:50
PROVIDERS: PCP Internal Medicine; Visit Provider Internal Medicine
DX: M54.50 Low back pain, unspecified (principal)
CPT/HCPCS: 80307

== ENCOUNTER 2023-10-07 14:20 | Outpatient (CLI) | payer BC, SELFPAY ==
--- NOTE | 2023-10-07 14:29 | XR_ITS ---
FINAL REPORT CLINICAL HISTORY: foot pain FINDINGS: Left foot Three views were obtained. There is no acute fracture or dislocation. The joint spaces appear normal. No soft tissue abnormality is identified. IMPRESSION: No acute process. Reviewed, Interpreted and Dictated by Hermes Wade III, MD Transcribed by Zuleima Guardado Authenticated and [facility]
== END 2023-10-07 23:59 ==
LOC: RAD 14:20
PROVIDERS: PCP Internal Medicine; Visit Provider Podiatrist
DX: M79.672 Pain in left foot (principal); D21.22 Benign neoplasm of connective and other soft tissue of left lower limb, including hip
CPT/HCPCS: 73630

== ENCOUNTER 2023-10-13 16:41 | Outpatient (CLI) | payer BC, SELFPAY ==
--- NOTE | 2023-10-13 16:45 | XR_ITS ---
PROCEDURE INFORMATION: Exam: XR Right Knee Exam date and time: 10/13/2023 4:46 PM Age: 53 years old Clinical indication: Pain; Knee; Right; Additional info: Right knee pain TECHNIQUE: Imaging protocol: Radiologic exam of the right knee. Views: 3 views. COMPARISON: CR XR KNEE RT 3V 02/12/2021 3:12 PM FINDINGS: Bones/joints: There is no evidence of acute fracture or dislocation. Joint spaces appear preserved. Minor spurring involves the patella. Soft tissues: No significant soft tissue edema. No subcutaneous emphysema or radiopaque foreign bodies. IMPRESSION: No acute posttraumatic osseous injury.
--- NOTE | 2023-10-13 16:45 | XR_ITS ---
PROCEDURE INFORMATION: Exam: XR Left Knee Exam date and time: 10/13/2023 4:46 PM Age: 53 years old Clinical indication: Pain; Knee; Left; Additional info: Left knee pain TECHNIQUE: Imaging protocol: Radiologic exam of the left knee. Views: 3 views. COMPARISON: CR XR KNEE LT 3V 02/12/2021 3:12 PM FINDINGS: Bones/joints: There is no evidence of acute fracture or dislocation. Joint spaces appear preserved. Minor spurring involves the patella. Soft tissues: No significant soft tissue edema. No subcutaneous emphysema or radiopaque foreign bodies. IMPRESSION: No acute posttraumatic osseous injury.
== END 2023-10-13 23:59 | disposition home or self-care (01) ==
LOC: RAD 16:42
PROVIDERS: PCP Internal Medicine; Visit Provider Internal Medicine
DX: M17.0 Bilateral primary osteoarthritis of knee (principal)
CPT/HCPCS: 73562

== ENCOUNTER 2023-11-14 12:25 | Emergency (ER) | payer BC, SELFPAY ==
[2023-11-14 13:10] VITALS: BP 129/93; PULSE 71; RESP 21; TEMP 36.7; O2SAT 95; BMI 26.6
--- NOTE | 2023-11-14 13:52 | ED_ITS ---
Discharge Plan Disposition Patient Disposition: Home, Self-Care Condition: Good Prescriptions Prescriptions: No Action tizanidine 4 mg tablet 4 mg PO DAILY Patient Comments: TAKE ONE TABLET BY MOUTH EVERY 8 HOURS NEEDED FOR spasms--use mainly AT night FOR 10 DAYS meloxicam 7.5 mg tablet 7.5 mg PO DAILY Patient Comments: TAKE ONE TABLET BY MOUTH EVERY DAY FOR LEFT ANKLE PAIN ivpwkvg-ayuorzejey-WTW-caff [id number] mg capsule 1 cap PO Q6HP PRN (Reason: Migraine Headache) Patient Comments: TAKE ONE CAPSULE BY MOUTH EVERY 6 HOURS NEEDED FOR HEADACHE MAX OF 4 CAPSULES PER DAY gabapentin 300 mg capsule 300 mg PO BID Patient Comments: TAKE TWO CAPSULES BY MOUTH TWICE DAILY Referrals Follow up/Referrals: Soren Elder MD [Primary Care Provider] - See instructions Activity Restrictions/Add. Instructions Additional Instructions/Restrictions: Go home lay down and sleep off remaining of your Migraine Headache Get your Migraine medication filled as discussed and take it as directed on the package Follow up with your Family Doctor if no improvement or any worsening of symptoms Straight to ER If any life threatening symptoms The toradol injection you was given in the [facility] will also aid in helping with your Knee pain Clinical Impressions Clinical Impression: Migraine Instructions Patient Instructions: Migraine -- Adult, DI for Arthritis Discharge ED Provider: Blanca Ontiveros [facility] [place] H[place] General Stated complaint: migraine, pain in both knees Mode of Arrival: Ambulatory Source of Information: Patient and Spouse Limitations: No Limitations Time Seen by Provider: 11/14/23 13:52 Description of Symptoms (Recalled from Triage Doc. by RN): PATIENT C/O MIGRAINE AND BILATERAL KNEE PAIN SINCE YESTERDAY. HE STATES HE HAD SOME MUSCLE SPASMS IN HIS BACK AND TOOK SOME MUSCLE RELAXERS, WHICH MADE HIS HEADACHE WORSE HEENT Symptoms (Recalled from RN notes): Yes Resp Symptoms (Recalled from RN notes): No Skin Symptoms (Recalled from RN notes): No MS Symptoms (Recalled from RN notes): Yes Functional Status (Recalled from RN notes): WNL History of Present Illness Provider Complaint: Patient states that he has been having migraine and pain in both knees since yesterday States that he has arthritis in his knees and thinks it has flared up on him States that that he has headache medication fioricet he thinks for his migraines but he is out and cannot get it till thursday States he took a Muscle relaxer yesterday to help with spasms in his back but made his headache worse so today he came in Related Data Home Medications Medication Instructions Recorded Confirmed iuneswo-bilrxpgwsl-ARB-caffeine 30 1 cap PO Q6HP PRN Migraine Headache 11/14/23 11/14/23 mg-50 mg-325 mg-40 mg capsule gabapentin 300 mg capsule 300 mg PO BID 11/14/23 11/14/23 meloxicam 7.5 mg tablet 7.5 mg PO DAILY 11/14/23 11/14/23 tizanidine 4 mg tablet 4 mg PO DAILY 11/14/23 11/14/23 Allergies Allergy/AdvReac Type Severity Reaction Status Date / Time Corticosteroids Allergy Unknown Verified 10/19/23 14:33 (Glucocorticoids) allergy reaction Penicillins Allergy Unknown Verified 10/19/23 14:33 allergy reaction Worker's Comp Is this a Worker's Comp case?: No [facility] Disclaimer: The information contained in this section may have been updated after the pat ient was seen, as this information can be updated by other users. Medical History Depression Anxiety Kidney stone Migraine Surgical History History of spinal fusion Family History Other Cancer Coronary artery disease Heart attack Hypertension Stroke Social History Smoking Status: Former smoker tobacco type: smokeless tobacco second hand exposure: No alcohol intake: never substance use type: denies use current occupational status: other Travel in the last 8 weeks: None household members: spouse housing: house marital status: ROS Obtained: Yes All systems reviewed & no additional complaints except as documented and Yes Systems reviewed as appropriate & no additional complaints except as documented Constitutional Constitutional: Reports system reviewed and no additional complaints, except as documented, Reports as per HPI, Denies body ache, Denies chills and Reports headache(s) Eyes Eyes: Reports system reviewed and no additional complaints, except as docum ented, Reports as per HPI, Denies blurry vision, Denies change in vision and Reports photophobia ENT Ears, Nose, Mouth, and Throat: Reports system reviewed and no additional complaints, except as documented, Reports as per HPI and Reports headache(s) Cardiovascular Cardiovascular: Reports system reviewed and no additional complaints, except as documented and Reports as per HPI Respiratory Respiratory: Reports system reviewed and no additional complaints, except as documented and Reports as per HPI Gastrointestinal Gastrointestingal: Reports system reviewed and no additional complaints, except as documented and as per HPI Musculoskeletal Musculoskeletal: Reports system reviewed and no additional complaints, except as documented, Reports as per HPI and Reports other (knees feeling achy hx arthritis) Neurologic Neurologic: Reports headache(s) Physical Exam General General appearance: alert and in no apparent distress Eye Eye exam: Present normal appearance and PERRL ENT ENT exam: Present mucous membranes moist Respiratory Respiratory exam: Present normal lung sounds bilaterally; Absent respiratory distress or wheezes Cardiovascular Cardiovascular exam: Present regular rate, normal rhythm and normal heart sounds Extremities Exam Extremities exam: Present other (reports achy like pain in both knees with hx of arthritits denies new injury ) Neurological Exam Neurological exam: Present alert, oriented X3 and normal gait Medical Decision Making Spenser Inquiry Pt receiving controlled substance: No Spenser was queried for this patient: No Vital Signs: 11/14/23 13:10 Temperature 98.0 F Temperature Source Oral Pulse Rate [Left Brachial] 71 Respiratory Rate 21 Blood Pressure [Left Arm] 129/93 H Blood Pressure Mean [Left Arm] 105 Blood Pressure Source [Left Arm] Automatic Cuff Blood Pressure Position [Left Arm] Sitting 02 Sat by Pulse Oximetry 95 Oxygen Delivery Method Room Air Medical Decision Narrative: Medication discussed with pharmacy due to patient currently taking Meloxicam Patient states he took it early this am and has taken Toradol, benadryl and zofran in the past for migraines Patient states that migraine is improving after medication patient dc'd home with family
[2023-11-14] MEDS: KETOROLAC 60MG/2ML VIAL 60 MG IM (14:20)
[2023-11-14] MEDS: ONDANSETRON 4MG ODT 4 MG SL (14:20)
[2023-11-14] MEDS: diphenhydrAMINE 50MG/ML VIAL 25 MG IM (14:20)
[2023-11-14 14:26] VITALS: BP 129/93; PULSE 71; RESP 21; TEMP 36.7; O2SAT 95
== END 2023-11-14 14:28 | disposition home or self-care (01) ==
PROVIDERS: Emergency Provider Nurse Practitioner; PCP Internal Medicine
DX: G43.909 Migraine, unspecified, not intractable, without status migrainosus (principal); M25.562 Pain in left knee; M25.561 Pain in right knee
CPT/HCPCS: 96372; 99212; 99214; G0463

== ENCOUNTER 2024-02-15 18:50 | Emergency (ER) | payer BC, SELFPAY ==
[2024-02-15 19:10] VITALS: BP 140/79; PULSE 78; RESP 21; TEMP 36.7; O2SAT 100; BMI 25.5
--- NOTE | 2024-02-15 19:56 | ED_ITS ---
Discharge Plan Disposition Patient Disposition: Home, Self-Care Condition: Good Prescriptions Prescriptions: New doxycycline hyclate 100 mg capsule 100 mg PO BID Qty: 20 0RF dextromethorphan polistirex [Delsym 12 hour] 30 mg/5 mL suspension,extended rel 12 hr 10 ml PO Q12H PRN (Reason: cough) Qty: 89 0RF albuterol sulfate [Proventil HFA] 90 mcg/actuation HFA aerosol inhaler 1 - 2 inh inhalation Q6H PRN (Reason: shortness of breath or wheezing) Qty: 8.5 0RF guaifenesin [Mucinex] 600 mg tablet extended release 12hr 1,200 mg PO BID PRN (Reason: cough) Qty: 20 0RF No Action gabapentin 300 mg capsule 600 mg PO BID Qty: 60 2RF hzimthf-fvwutwhtjz-XHM-caff [id number] mg capsule 1 cap PO Q6H PRN (Reason: migraine headache) Qty: 30 1RF tizanidine 4 mg tablet 4 mg PO DAILY Patient Comments: TAKE ONE TABLET BY MOUTH EVERY 8 HOURS NEEDED FOR spasms--use mainly AT night FOR 10 DAYS meloxicam 7.5 mg tablet 7.5 mg PO DAILY Patient Comments: TAKE ONE TABLET BY MOUTH EVERY DAY FOR LEFT ANKLE PAIN Referrals Follow up/Referrals: Soren Elder MD [Primary Care Provider] - See instructions Activity Restrictions/Add. Instructions Additional Instructions/Restrictions: Make sure to take with food but avoid taking with Dairy products, or calcium products this may cause stomach upset Make sure if you are going to be out in the sun make sure to wear sun protection Take medication as prescribed Follow up with your Family Doctor if no improvement or any worsening symptoms * Start antibiotic today. Be sure to complete entire prescription even if feeling better * Monitor temp. Tylenol every 4 hours as needed and / or ibuprofen every 6 hours as needed ( As long as your primary care physician has told you that it ok to take both. For fever/aches/pains ER if no less than 101 despite Tylenol or Motrin * Humidifier/vaporizer or hot steamy shower * Inhaler every 4-6 hours as needed like we discussed. If unsure how to use it, ask pharmacist to demonstrate how. Should help open airways and improve cough, wheezing, and shortness of breath * Mucinex during the day for your cough and cough suppressant only at night. Be sure to drink lots of water. Follow up IMMEDIATELY for new or worsening of symptoms OR no noticeable improvement over the next 48-72 hours. 911 immediately for any life threatening symptoms such as chest pain or difficulty breathing Clinical Impressions Clinical Impression: Bronchitis Instructions Patient Instructions: Acute Bronchitis, Doxycycline Print Language Print Language: Bhutanese Discharge ED Provider[place] Blanca Ontiveros [facility] [place] General Stated complaint: cough congestion chills ba Mode of Arrival: Ambulatory Source of Information: Patient Limitations: No Limitations Time Seen by Provider: 02/15/24 19:58 Description of Symptoms (Recalled from Triage Doc. by RN): PATIENT C/O COUGH, CONGESTION, SOA, CHEST CONGESTION, AND FATIGUE X 2 WEEKS HEENT Symptoms (Recalled from RN notes): No Resp Symptoms (Recalled from RN notes): Yes Skin Symptoms (Recalled from RN notes): No MS Symptoms (Recalled from RN notes): No Functional Status (Recalled from RN notes): WNL History of Present Illness Provider Complaint: Patient states that he has been sick on and off for about 2 weeks States that he has been having cough, chest congestion, at times coughing up thick yellowish mucous feeling fatigued on and off states he had zpack at home and took it a week or so ago but not sure it was enough 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 and today his made him come in and get checked Related Data Home Medications ?Medication ?Instructions ?Recorded ?Confirmed meloxicam 7.5 mg tablet 7.5 mg PO DAILY 11/14/23 02/15/24 tizanidine 4 mg tablet 4 mg PO DAILY 11/14/23 02/15/24 Previous Rx's ?Medication ?Instructions ?Recorded gabapentin 300 mg capsule 600 mg (2 x 300 mg) PO BID #60 caps 02/08/24 hqsrfol-egaukjrhqi-NJD-caffeine 30 1 cap PO Q6H PRN migraine headache 02/10/24 mg-50 mg-325 mg-40 mg capsule #30 caps albuterol sulfate 90 mcg/actuation 1 - 2 inh inhalation Q6H PRN 02/15/24 aerosol inhaler (Proventil HFA) shortness of breath or wheezing #8.5 grams dextromethorphan polistirex 30 10 ml PO Q12H PRN cough #89 mL 02/15/24 mg/5 mL oral susp ext.release 12hr (Delsym 12 hour) doxycycline hyclate 100 mg capsule 100 mg PO BID #20 caps 02/15/24 guaifenesin 600 mg tablet, 1,200 mg (2 x 600 mg) PO BID PRN 02/15/24 extended release 12 hr (Mucinex) cough #20 tabs Allergies Allergy/AdvReac Type Severity Reaction Status Date / Time Corticosteroids Allergy Unknown Verified 10/19/23 14:33 (Glucocorticoids) allergy reaction Penicillins Allergy Unknown Verified 10/19/23 14:33 allergy reaction Worker's Comp Is this a Worker's Comp case?: No [facility] Disclaimer: The information contained in this section may have been updated after the jarvis nt was seen, as this information can be updated by other users. Medical History Depression Anxiety Kidney stone Migraine Surgical History History of spinal fusion Family History Other Cancer Coronary artery disease Heart attack Hypertension Stroke Social History Smoking Status: Former smoker tobacco type: smokeless tobacco second hand exposure: No alcohol intake: never substance use type: denies use current occupational status: other Travel in the last 8 weeks: None household members: spouse housing: house marital status: ROS Obtained: Yes All systems reviewed & no additional complaints except as documented and Yes Systems reviewed as appropriate & no additional complaints except as documented Constitutional Constitutional: Reports system reviewed and no additional complaints, except as documented and Reports as per HPI ENT Ears, Nose, Mouth, and Throat: Reports system reviewed and no additional complaints, except as documented, Reports as per HPI, Reports sinus pain and Reports sinus pressure Cardiovascular Cardiovascular: Reports system reviewed and no additional complaints, except as documented and Reports as per HPI Respiratory Respiratory: Reports system reviewed and no additional complaints, except as documented, Reports as per HPI, Reports shortness of breath (at times), Reports chest congestion and Reports cough Physical Exam General General appearance: alert and in no apparent distress ENT ENT exam: Present mucous membranes moist Expanded ENT Exam Nose exam: Present sinus tenderness Respiratory Respiratory exam: Present normal lung sounds bilaterally and other (rhonchi at times clears with cough); Absent respiratory distress or wheezes Cardiovascular Cardiovascular exam: Present regular rate, normal rhythm and normal heart sounds Neurological Exam Neurological exam: Present alert, oriented X3 and normal gait Medical Decision Making Spenser Inquiry Pt receiving controlled substance: No Spenser was queried for this patient: No Vital Signs: 02/15/24 19:10 Temperature 98.0 F Temperature Source Oral Pulse Rate [Left Brachial] 78 Respiratory Rate 21 Blood Pressure [Left Arm] 140/79 Blood Pressure Mean [Left Arm] 99 Blood Pressure Source [Left Arm] Automatic Cuff Blood Pressure Position [Left Arm] Sitting 02 Sat by Pulse Oximetry 100 Oxygen Delivery Method Room Air Medical Decision Narrative: Discussed CXR patient declined will start on medication and have him follow up with PCP if no improvement or any worsening of symptoms
[2024-02-15 20:24] VITALS: BP 140/79; PULSE 78; RESP 21; TEMP 36.7; O2SAT 100
== END 2024-02-15 20:27 | disposition home or self-care (01) ==
PROVIDERS: Emergency Provider Nurse Practitioner; PCP Internal Medicine
DX: J20.9 Acute bronchitis, unspecified (principal); R05.9 Cough, unspecified; R53.83 Other fatigue
CPT/HCPCS: 99212; 99214; G0463

== ENCOUNTER 2024-02-23 15:08 | Outpatient (CLI) | payer BC, SELFPAY ==
--- NOTE | 2024-02-23 15:12 | XR_ITS ---
FINAL REPORT TECHNIQUE: Chest PA & Lateral CLINICAL HISTORY: Cough, wheezing, shortness of air COMPARISON: None FINDINGS: 2 views of the chest were performed. The heart size is normal. The mediastinum is within normal limits. There is no acute cardiopulmonary process. There are no pleural effusions. There is no pneumothorax. The bony thorax appears intact. Cervical fusion hardware is noted in the lower cervical spine. IMPRESSION: No acute cardiopulmonary process. Reviewed, Interpreted and Dictated by Smooth Huffman MD Transcribed by Jagruti Rodrigues Authenticated and . [facility]
== END 2024-02-23 23:59 | disposition home or self-care (01) ==
LOC: RAD 15:10
PROVIDERS: PCP Internal Medicine; Visit Provider Internal Medicine
DX: R05.3 Chronic cough (principal); R06.00 Dyspnea, unspecified
CPT/HCPCS: 71046

== ENCOUNTER 2024-03-01 14:00 | Outpatient (CLI) | payer BC, SELFPAY ==
--- NOTE | 2024-03-01 14:04 | XR_ITS ---
FINAL REPORT CLINICAL HISTORY: Foot Pain states sprain COMPARISON: 10/07/2023 FINDINGS: LEFT FOOT Three views of the left foot demonstrate no acute fracture or dislocation. The visualized joint spaces are normally aligned. The soft tissues are unremarkable. IMPRESSION: No acute bony abnormality. Reviewed, Interpreted and Dictated by Smooth Huffman MD Transcribed by Jagruti Rodrigues Authenticated and [facility]
== END 2024-03-01 23:59 | disposition home or self-care (01) ==
LOC: RAD 14:02
PROVIDERS: PCP Internal Medicine; Visit Provider Podiatrist
DX: M79.672 Pain in left foot (principal)
CPT/HCPCS: 73630

== ENCOUNTER 2024-03-18 14:06 | Outpatient (CLI) | payer BC, SELFPAY ==
--- NOTE | 2024-03-18 14:15 | MR_ITS ---
FINAL REPORT CLINICAL HISTORY: evaluate STM/Fibroma, foot pain, peroneal tendon. LATERAL SIDED ANKLE PAIN. TWISTED ANKLE FINDINGS: Multi planar MR images of the left foot was performed with and without contrast. There is no evidence of fracture or bone marrow edema. No bony mass is identified. There is mild posterior tibial tenosynovitis. The ligaments appear intact. There is a small nodule at the mid plantar aponeurosis measuring 6 mm well seen on sagittal T1 image 15 consistent with a plantar fibroma. Along the medial aspect of the plantar aponeurosis beneath the proximal 1st metatarsal are 3 adjacent masses measuring 11, 14, and 4 mm consistent with multiple plantar fibromas. Findings are best seen on coronal T1 images 26, 30, and 33 as well as sagittal T1 image 11. All the described masses show contrast enhancement. There is also contrast enhancement of the lateral ankle soft tissues, may be inflammatory. IMPRESSION: Multiple plantar fibromas. Mild posterior tibial tenosynovitis. Reviewed, Interpreted and Dictated by Hermes Wade III, MD Transcribed by Zuleima Guardado Authenticated and [facility]
[2024-03-18] MEDS: SODIUM CHLORIDE 0.9% 10ML SYR (RAD ONLY) 10 ML IV (15:02)
[2024-03-18] MEDS: GADOTERIDOL INJ 20ML SYRINGE 17 ML IV (15:02)
== END 2024-03-18 23:59 | disposition home or self-care (01) ==
LOC: RAD 14:07
PROVIDERS: PCP Internal Medicine; Visit Provider Podiatrist
DX: M79.672 Pain in left foot (principal); S86.312A Strain of muscle(s) and tendon(s) of peroneal muscle group at lower leg level, left leg, initial encounter; R60.0 Localized edema; Q66.71 Congenital pes cavus, right foot; Q66.72 Congenital pes cavus, left foot; D49.89 Neoplasm of unspecified behavior of other specified sites
CPT/HCPCS: 73720; A9576

== ENCOUNTER 2024-05-18 08:46 | Outpatient (CLI) | payer BC, SELFPAY ==
--- NOTE | 2024-05-18 08:47 | MR_ITS ---
FINAL REPORT CLINICAL HISTORY: PRIOR HX NECK SURGERY. NUMBNESS IN DIGITS BILATERAL HANDS COMPARISON: 05/04/2017 FINDINGS: Multiplanar MR imaging of the cervical spine was performed without and with contrast. Postoperative changes are again seen at the C5-6 level. Motion is present on some sequences which slightly limits overall image quality. On the sagittal T2-weighted images, disc degeneration is seen throughout. The vertebral alignment is normal. There is no evidence of fracture. There is a hemangioma in the dens. The cervical spinal cord has an unremarkable appearance without evidence of mass, edema or syrinx. There is no evidence of significant canal stenosis. C2-3: A small central disc protrusion is present, without significant canal stenosis or neural foraminal narrowing. C3-4: Uncovertebral osteophytes are present, with severe right and moderate left neural foraminal narrowing. C4-5: Disc osteophyte complex is present, with moderate bilateral neural foraminal narrowing. C5-6: The C5-6 level has been fused. There is mild bilateral neural foraminal narrowing. C6-7: Disc osteophyte complex is present, with moderate bilateral neural foraminal narrowing. C7-T1: No significant canal stenosis or neural foraminal narrowing is identified. No abnormal contrast enhancement is seen on the postcontrast images. IMPRESSION: Multilevel degenerative change is present, most severe at the C3-4 level. Prior anterior cervical fusion at the C5-6 level. Reviewed, Interpreted and Dictated by Hermes Wade III, MD Transcribed by Carmen Kiran Authenticated and [facility]
[2024-05-18] MEDS: GADOTERIDOL INJ 20ML SYRINGE 17 ML IV (09:45)
[2024-05-18] MEDS: SODIUM CHLORIDE 0.9% 10ML SYR (RAD ONLY) 10 ML IV (09:45)
== END 2024-05-18 23:59 | disposition home or self-care (01) ==
LOC: RAD 08:47
PROVIDERS: PCP Internal Medicine; Visit Provider Internal Medicine
DX: M54.2 Cervicalgia (principal); M54.12 Radiculopathy, cervical region
CPT/HCPCS: 72156; A9576

== ENCOUNTER 2024-05-31 09:35 | Outpatient (CLI) | payer BC, SELFPAY ==
--- NOTE | 2024-05-31 09:39 | XR_ITS ---
FINAL REPORT CLINICAL HISTORY: Hand pain and stiffness FINDINGS: AP, lateral and oblique views of the right hand were obtained. There is no prior exam for comparison. There is no acute fracture or dislocation. There is normal mineralization of the bones. No evidence of erosion. The joint spaces are preserved. The soft tissues are normal. IMPRESSION: No acute osseous abnormality of the right hand. Reviewed, Interpreted and Dictated by Wanda Sarah MD Transcribed by Jagruti Rodrigues Authenticated and [facility]
--- NOTE | 2024-05-31 09:39 | XR_ITS ---
FINAL REPORT CLINICAL HISTORY: Hand pain and stiffness FINDINGS: AP, oblique, and lateral views of the left hand were obtained. There is no prior exam for comparison. There is no acute fracture of the left hand. There is normal mineralization of the bones. No evidence of erosion. The joint spaces are preserved. The soft tissues are normal. IMPRESSION: No acute osseous abnormality of the left hand. Reviewed, Interpreted and Dictated by Wanda Sarah MD Transcribed by Jagruti Rodrigues Authenticated and . [facility]
[2024-05-31 12:50] LABS: Basophils # 0.1 K/mm3 (0-0.2); Basophils % 1.8 % (0.1-2.0); Eosinophils % 11.8 % (0.1-12.0); Hematocrit 46.3 % (42.0-52.0); Hemoglobin 15.8 g/dL (14.1-18.0); Lymphocytes # 2.2 K/mm3 (0.7-4.5); Lymphocytes % 26.3 % (10-50); Mean Corpuscular HGB Conc 34.1 g/dL (31.8-35.4); Mean Corpuscular Hemoglobin 30.7 pg (27.0-31.2); Mean Corpuscular Volume 90.2 fl (80-94); Mean Platelet Volume 7.3 fl (7.4-10.4); Monocytes # 0.5 K/mm3 (0.1-1.0); Monocytes % 6.3 % (1.7-9.3); Neutrophils # 4.4 K/mm3 (1.8-7.8); Neutrophils % 53.9 % (37.0-80.0); Platelet Count 314 K/mm3 (142-424); Red Blood Count 5.13 M/mm3 (4.60-6.20); Red Cell Distribution Width 13.8 % (11.5-17.5); White Blood Count 8.2 K/mm3 (4.8-10.8)
[2024-05-31 13:22] LABS: Erythrocyte Sedimentation Rate 5 mm/hr (0-20)
[2024-05-31 13:58] LABS: Anion Gap 8.9 mEq/L (5-15); Blood Urea Nitrogen 12 mg/dl (9-20); Calcium 8.7 mg/dl (8.4-10.2); Carbon Dioxide 30 mmol/L (22.0-30.0); Chloride 105 mmol/L (98-107); Estimated Glomerular Filt Rate 102 ml/min (>60); GFR (African American) 123 ML/MIN (>60); Glucose 81 mg/dl (74-100); Potassium 4.9 mmoL/L (3.5-5.1); Sodium 139 mmol/L (136-145); Uric Acid 6.1 mg/dl (3.5-8.5)
[2024-06-11 00:08] LABS: Rheumatoid Factor IGM 57 U (<7)
[2024-06-11 14:25] LABS: Rheumatoid Factor IGA < 7 U (<7)
== END 2024-05-31 23:59 | disposition home or self-care (01) ==
LOC: RAD 09:36
PROVIDERS: Visit Provider Internal Medicine
DX: M19.041 Primary osteoarthritis, right hand (principal); M19.042 Primary osteoarthritis, left hand
CPT/HCPCS: 73130; 80048; 84550; 85025; 85651; 86431

== ENCOUNTER 2024-10-02 20:25 | Emergency (ER) | payer MEDICAID, SELFPAY ==
[2024-10-02 20:32] VITALS: BP 141/90; PULSE 73; RESP 18; TEMP 36.9; O2SAT 100; BMI 28.5
--- NOTE | 2024-10-02 20:53 | ED_ITS ---
<Statement entered by Cj Hernadez MD - 10/02/24 23:17> I was consulted by the CRISTINE, and we discussed the complexity of the problems being addressed. I approved the treatment and management plan for this patient's care in the emergency department, thus performing a substantive portion of the medical decision making. Cj Hernadez MD Discharge Plan Disposition Patient Disposition: Home, Self-Care Condition: Good Prescriptions Prescriptions: New cephalexin 500 mg capsule 500 mg PO BID 7 Days Qty: 14 0RF No Action diclofenac sodium 1 % gel topical Patient Comments: APPLY TOPICALLY TO THE AFFECTED AREA(S) 2 grams FOUR TIMES DAILY oxycodone 5 mg tablet 5 mg PO Q8H PRN (Reason: pain) Qty: 30 0RF methylprednisolone 4 mg tablets,dose pack See Rx Instructions PO PER PKG DIR Qty: 21 0RF Rx Instructions: PO PER PKG DIR famotidine 20 mg tablet 20 mg PO HS Qty: 30 1RF gabapentin 300 mg capsule 600 mg PO TID Qty: 180 0RF nbpveva-zmuzeehwaj-BED-caff [id number] mg capsule 1 cap PO Q6H PRN (Reason: headache) Qty: 30 0RF tizanidine 4 mg tablet 4 mg PO DAILY Patient Comments: TAKE ONE TABLET BY MOUTH EVERY 8 HOURS NEEDED FOR spasms--use mainly AT night FOR 10 DAYS doxycycline hyclate 100 mg capsule 100 mg PO BID Qty: 20 0RF albuterol sulfate [Proventil HFA] 90 mcg/actuation HFA aerosol inhaler 1 - 2 inh inhalation Q6H PRN (Reason: shortness of breath or wheezing) Qty: 8.5 0RF Referrals Follow up/Referrals: Soren Elder MD [Primary Care Provider] - See instructions Activity Restrictions/Add. Instructions Additional Instructions/Restrictions: Please keep your wound clean dry and covered with a nonocclusive dressing. You may wash with soap and water daily. If you notice any redness swelling pain or drainage return to the emergency department for evaluation. Your sutures need to stay in for approximately 14 days. You may return to [facility] PCP or the ER to r emove your stitches. I have sent a prescription into your pharmacy for Keflex. Please take your antibiotic till it is gone. Clinical Impressions Clinical Impression: Laceration of right index finger Qualifiers: Encounter type: initial encounter Damage to nail status: without damage Foreign body presence: without foreign body Qualified Code(s): S61.210A - Laceration without foreign body of right index finger without damage to nail, initial encounter Instructions Patient Instructions: DI for Laceration Repair Print Language Print Language: Kyrgyz Discharge ED Provider: Cj Hernadez General Adult HPI General Chief complaint: Wound/Laceration Stated complaint: AO 10/02/241944 laceration right index finger Time Seen by Provider: 10/02/24 20:53 Mode of Arrival: Ambulatory Source of Information: Patient Description of Symptoms (Recalled from ER Triage Doc. by RN): Pt states he was cutting a sweet potatoe with a knife and cut his right hand. t-dap is not up to date History of Present Illness HPI narrative: Patient presents for laceration to his right index finger. 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 Patient currently still has full range of motion is neurovascularly intact distally has no numbness or tingling. Related Data Home Medications ?Medication ?Instructions ?Recorded ?Confirmed tizanidine 4 mg tablet 4 mg PO DAILY 11/14/23 07/19/24 diclofenac sodium 1 % topical gel topical 02/23/24 07/19/24 Previous Rx's ?Medication ?Instructions ?Recorded albuterol sulfate 90 mcg/actuation 1 - 2 inh inhalation Q6H PRN 02/15/24 aerosol inhaler (Proventil HFA) shortness of breath or wheezing #8.5 grams doxycycline hyclate 100 mg capsule 100 mg PO BID #20 caps 02/15/24 oxycodone 5 mg tablet 5 mg PO Q8H PRN pain #30 tabs 05/04/24 famotidine 20 mg tablet 20 mg PO HS #30 tabs 07/19/24 methylprednisolone 4 mg tablets in See Rx Instructions PO PER PKG DIR 07/19/24 a dose pack #21 tabs gabapentin 300 mg capsule 600 mg (2 x 300 mg) PO TID #180 09/19/24 caps euedjeu-djyvuddtsn-EQY-caffeine 30 1 cap PO Q6H PRN headache #30 caps 09/26/24 mg-50 mg-325 mg-40 mg capsule cephalexin 500 mg capsule 500 mg PO BID 7 days #14 caps 10/02/24 Allergies Allergy/AdvReac Type Severity Reaction Status Date / Time Corticosteroids Allergy Unknown Verified 07/19/24 15:09 (Glucocorticoids) allergy reaction Penicillins Allergy Unknown Verified 07/19/24 15:09 allergy reaction PFSH PFSH Disclaimer: The information contained in this section may have been updated after the patient was seen, as this information can be updated by other users. Medical History Depression Anxiety Kidney stone Migraine Surgical History History of spinal fusion Family History Other Cancer Coronary artery disease Heart attack Hypertension Stroke Social History Smoking Status: Never smoker second hand exposure: No alcohol intake: never substance use type: denies use current occupational status: other Travel in the last 8 weeks: None household members: spouse housing: house marital status: Have you lived/traveled outside [place] in past 30 days?: No Contact w/someone who lives/traveled outside US past 30 days?: No Exposure to someone with infectious disease in past 14 days?: No Do you have a fever (greater than 100.4 F or 38 C)?: No Have you tested positive for COVID-19: No Exposed to someone with COVID-19 in past 14 days?: No Do you have a sore throat?: No Do you have a cough?: No Do you have any weakness?: No Do you have any diarrhea?: No Are you experiencing any unusual bleeding?: No Do you have any muscle aches/pain?: No Do you have any abdominal pain?: No Are you experiencing loss of taste or smell?: No Other Medical History Have you received the Flu Vaccine for this season: No Have you received the Pneumonia Vaccine: No ROS Obtained: Yes Systems reviewed as appropriate & no additional complaints except as documented Physical Exam General General appearance: alert and in no apparent distress Respiratory Respiratory exam: Present normal lung sounds bilaterally Cardiovascular Cardiovascular exam: Present regular rate Neurological Exam Neurological exam: Present alert and oriented X3 Medical Decision Making Medical Records Medical records reviewed: Yes I reviewed the patient's medical records. Screening: Per USPSTF and CDC recommendations, given the prevalence of disease in our region, it is our hospital?s policy to screen for HIV and viral Hepatitis for all patients aged 18 and over and those with ongoing risk factors. [place] Inquiry Pt receiving controlled substance: No Vital Signs: 10/02/24 20:32 Temperature 98.4 F Temperature Source Temporal Artery Scan Pulse Rate [Right] 73 Respiratory Rate 18 Blood Pressure [Right Arm] 141/90 H Blood Pressure Mean [Right Arm] 107 Blood Pressure Source [Right Arm] Automatic Cuff Blood Pressure Position [Right Arm] Sitting 02 Sat by Pulse Oximetry 100 Oxygen Delivery Method Room Air Medical Decision Narrative: In summary patient is a 54-year-old male who presents to the emergency department for evaluation of right index finger laceration. Patient is hemodynamically stable with a blood pressure 141/90 heart rate 73 normal sinus rhythm on the bedside monitor breathing 18 times a minute satting 100% room air upon arrival, afebrile at 90.4. Physical exam is remarkable for a 5 cm laceration to the lateral aspect of his right index finger. Laceration starts just distal to the MCP joint and stops proximal to the interphalangeal joint. Patient has full range of motion in all cardinal directions is neurovascularly intact distally with motor and sensory intact. Differential diagnosis includes superficial versus deep simple versus complex laceration. Initial workup will be conducted with exam under local subcutaneous anesthesia. Initial interventions include Keflex and Tdap. Initial workup performed by me and after adequate anesthesia obtained with 10 cc of lidocaine with epinephrine infiltrated subcutaneously around the wound wound was fully explored and it is a superficial laceration parallel to the length of the finger that does not involve an deep structure, there is no tendon involvement there is no joint involvement.. Given this wound was fully irrigated with 500 cc of normal saline and Betadine solution then wound was sterilely prepped and draped and primarily repaired with ten 4.0 nylon interrupted sutures with good hemostasis. Patient h as good flexion extension postrepair. Thus patient is appropriate for discharge with prescription for Keflex with first dose given here and strict return precautions and wound care instructions given to him by myself. Critical Care Critical Care Time Critical Care Time: No
[2024-10-02] MEDS: TET/DIPHTH/PERT-ADULT 0.5ML SYRINGE 0.5 ML IM (21:49)
[2024-10-02] MEDS: cephALEXin 500MG CAPSULE 500 MG PO (21:50)
[2024-10-02 21:56] VITALS: BP 119/68; PULSE 78; RESP 14; TEMP 36.7; O2SAT 100
== END 2024-10-02 21:57 | disposition home or self-care (01) ==
PROVIDERS: Emergency Provider Emergency Medicine; PCP Internal Medicine
DX: S61.210A Laceration without foreign body of right index finger without damage to nail, initial encounter (principal); Z23 Encounter for immunization; W26.0XXA Contact with knife, initial encounter; Y93.89 Activity, other specified; Y92.89 Other specified places as the place of occurrence of the external cause
CPT/HCPCS: 12002; 90471; 90715; 99283

== ENCOUNTER 2024-10-26 07:00 | Outpatient (CLI) | payer SELFPAY ==
[2024-10-26 14:14] LABS: Amphetamine/Metha Screen,Urine Negative ng/ml (<1000)
[2024-10-26 14:15] LABS: Barbiturates Screen,Urine Positive ng/ml (<200); Benzodiazepines Screen,Urine Negative ng/ml (<200)
[2024-10-26 14:16] LABS: Cannabinoid Screen,Urine Negative ng/ml (<50); Cocaine Screen,Urine Negative ng/ml (<300)
[2024-10-26 14:17] LABS: Methadone Screen,Urine Negative ng/ml (<300)
[2024-10-26 14:18] LABS: Opiate Screen,Urine Positive ng/ml (<300); Phencyclidine Screen,Urine Negative ng/ml (<25)
== END 2024-10-26 23:59 | disposition home or self-care (01) ==
LOC: LAB.DROPOF 10-27 11:08
PROVIDERS: PCP Internal Medicine; Visit Provider Internal Medicine
DX: Z51.81 Encounter for therapeutic drug level monitoring (principal); Z79.891 Long term (current) use of opiate analgesic
CPT/HCPCS: 80307

== ENCOUNTER 2025-03-28 14:17 | Outpatient (CLI) | payer MEDICARE, SELFPAY ==
--- OUTSIDE RECORDS SUMMARY | 2025-03-28 14:22 | XMS_ITS ---
Author Organization Unknown TREATMENT PLAN Planned [facility] Start Date Provider Encounter for Check-up [phone] [facility]
--- NOTE | 2025-03-28 14:30 | MR_ITS ---
FINAL REPORT TECHNIQUE: Multiplanar and multisequence imaging of the lumbar spine was obtained without contrast. CLINICAL HISTORY: Low back pain with bilateral sciatica lower back pain with leg pain when walking x 3 weeks ago pt stated left side is worse than right COMPARISON: None FINDINGS: There is normal alignment of the lumbar vertebral bodies. Vertebral body height is preserved. The spinal cord ends at the level of L1. There is normal signal intensity within the substance of the distal spinal cord. No acute bone marrow edema or pathologic marrow replacement. No acute paraspinal abnormality is identified. L1-2: There is no focal disc herniation, central canal stenosis or neuroforaminal narrowing. L2-3: There is no focal disc herniation, central canal stenosis or neuroforaminal narrowing. L3-4: Annular disc bulge. No central canal stenosis. Mild left greater than right inferior foraminal narrowing. L4-5: Annular disc bulge with degenerative endplate changes and facet osteoarthropathy. No central canal stenosis. Mild bilateral neuroforaminal narrowing. L5-S1: Subarticular disc protrusion. Disc material contacts and posteriorly displaces the right S1 nerve root. Right central canal stenosis. Mild to moderate right neuroforaminal narrowing. IMPRESSION: Right subarticular protrusion at L5-S1 contacting and displacing the right S1 nerve root. Reviewed, Interpreted and Dictated by Wanda Sarah MD Transcribed by Jagruti Rodrigues Authenticated and [facility]
== END 2025-03-28 23:59 | disposition home or self-care (01) ==
LOC: RAD 14:19
PROVIDERS: PCP Internal Medicine; Visit Provider Internal Medicine
DX: M51.17 Intervertebral disc disorders with radiculopathy, lumbosacral region (principal)
CPT/HCPCS: 72148

== ENCOUNTER 2025-04-19 10:00 | Outpatient (RCR) | payer MEDICARE, SELFPAY ==
--- NOTE | 2025-04-12 09:21 | HMH.PTOPEV ---
PT Evaluation Rehab PT Outpatient Evaluation Start: 04/11/25 12:51 Freq: Status: Active Protocol: Document 04/11/25 12:52 [email or web address] (Rec: 04/11/25 15:08 SEBASTIEN [id number]) E-signed By Amber Hillman, PT Outpatient Therapy Subjective History Subjective History Pt is a 54 y/o male who reports chronic low back pain with worsening of symptoms in February without known trauma or injury. Pt reports later onset of radiating pain into his R hip. Pt current symptoms of intermittent radiating pain into bilateral lateral calves and intermittent numbness of the L>R foot that mostly occurs with prolonged sitting. Pt reports overall pain is aggravated by sitting, standing, twisting, walking, bending, and lifting. Pt had a lumbar spine MRI on 03/28/25 with impression of Right subarticular protrusion at L5-S1 contacting and displacing the right S1 nerve root. Pt denies b/b dysfunction. 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 Pt states he discussed seeing a neurosurgeon with his PCP but has not yet scheduled this appointment. Pt reports both legs feel weak and he has been stumbling when walking due to difficulty lifting his feet when walking . Pt states he has fallen 8-10 times due to this. Pt reports most recent fall 3 weeks ago when walking on a sidewalk, denies serious injuries from the fall. Pt denies use of an AD. Pt reports he is taking Gabapentin and Tylenol which he states does lessen pain and helps him sleep at night. Medical History: Depression, Anxiety, Kidney stone, Migraine New diagnosis of No cancer in past 12 months? Chief Complaint Pain,Stiff,Weakness Symptom Type Ache,Sharp,Dull Symptoms Relieved By Rest/Positioning Symptoms Aggravated Sitting,Standing,Bending/Stooping,Physical Activity, By Twisting,Walking,Lifting Current Functional Lifting,Standing,Sitting,Walking,Balance,Bending/ Limitations Stooping Symptom Description Constant but Variable Level of pain today 3 (0-10) Pain scale - at its 3 best (0-10) Pain scale - at its 10 worst (0-10) Lumbopelvic Eval Posture Lumbar Spine Posture Flattened,Decreased Lordosis Standing Position Assistive device Assistive Devices None / NA Gait Observation General Gait Pattern No Deviations/Normal Observation Palapation tenderness bilateral lumbar spinal Yes: L5-L5, S1 tenderness paraspinal Yes: R>L tenderness buttock tenderness Yes: R>L piriformis Lumbar/Sacral Tenderness Palpation Findings Lumbar/Sacral 2/4 TTP Palpation Overall Comment Accessory Movement L-spine Vertebrae Central P/A [place] Accessory Movements that Elicit Symptoms L4 bilateral L5 bilateral S1 bilateral Range of Motion Lumbar Spine Active 25 Flexion Range of Motion (degrees) Lumbar Spine Active 5 Extension Range of Motion (degrees) Left Lumbar Spine 5 Lateral Flexion Active Range of Motion (degrees) Right Lumbar Spine 5 Lateral Flexion Active Range of Motion (degrees) Manual Muscle Test Right Knee Extension 4 Good Strength Grade Knee Flexion 4 Good Strength Grade Hip Flexion Strength 4 Good Grade Hip Abduction 4 Good Strength Grade Hip Adduction 4 Good Strength Grade Hip Extension 4 Good Strength Grade Ankle Dorsiflexion 4+ Good+ Strength Grade Left Knee Extension 4- Good- Strength Grade Knee Flexion 4- Good- Strength Grade Hip Flexion Strength 4- Good- Grade Hip Abduction 4- Good- Strength Grade Hip Adduction 4- Good- Strength Grade Ankle Dorsiflexion 4- Good- Strength Grade DTR Rt Patellar 1+ Lt Patellar 1+ Rt Gastroc/Soleus 1+ Lt Gastroc/Soleus 1+ Altered Sensation Bilateral LE Dermatome Level L4,L5,S1 Comment decreased light touch sensation left compared to right Special Tests Hip Jorden (WALTER) Positive Left,Positive Right Test Sciatic Nerve Positive Left,Positive Right Tension Test Unilateral Straight Positive Left,Positive Right Leg Raise (Lasegue) Test Oswestry Index Section 1 Pain Intensity The pain comes and goes and is severe Section 2 Personal Care ( increase the pain, but I manage not to change my way of Washing,[place]resing) doing it Section 3 Lifting lifting heavy weights off the floor, but I can manage if they are Section 4 Walking I cannot walk more than 1/4 mile without increasing pain Section 5 Sitting Pain prevents me from sitting for more than 1/2 hour Section 6 Standing I cannot stand more than 1/2 hour without increasing pain Section 7 Sleeping Because of my pain, my normal night's sleep is less than 4 hours Section 8 Social Life Pain has restricted my social life and I do not go out often Section 9 Traveling I get extra pain while traveling, but it does not compel me to seek al Section 10 Changing Degreee of My pain is neither getting better or worse Pain Score and Risk Level Oswestry Score 30 Oswestry Risk Level Severe Disability Miscellaneous Dx PT Eval Objective Objective + slump test on RLE Outpatient Therapy Assessment Impairments Problems/ Palpation Tenderness,Impaired Range of Motion,Impaired Impairmments Strength,Impaired Walking,Impaired Standing,Impaired Lifting,Impaired Bending,Subjective C/O Pain,Impaired Self Care/Self Management Prognosis Rehab Potential Good Clinical Impression Consistent with Yes Diagnosis PT Patient Goals PT Patient Goals PT Short Term 3 weeks: Patient Goals 1. Verbalize compliance with HEP to assist with progress. 2. Improve lumbar flexion AROM to at least 40 to assist with mobility and function. 3. Improve SUJEY score to 25 or less to improve overall QOL/function, 4. Improve pain at worst to 8/10 to improve overall QOL /function. PT Correction Patient 6 weeks: Goals 1. Improve lumbar AROM flex to at least 60-70, ext & LF to 10-15 to assist with mobility and function. 2. Improve BLE MMT to 4-4+/5 grossly to assist with function. 3. Improve SUJEY score to 20 to improve overall QOL/ function. 4. Improve pain at worst to 6/10 to improve overall QOL /function. Outpatient Therapy Plan of Care Treatment Plan May Include Therapeutic Exercise Yes Including Home Exercise Program Manual Therapy Yes Techniques Neuromuscular Re- Yes education Therapeutic Yes Activities to Return to Previous Functional/Work Level Gait Training Yes ADL/Self Care Yes Education Mechanical Traction Yes Dry Needling Yes Thermal Modalities Yes Electrical Yes Stimulation Ultrasound/ Yes Phonophoresis Iontophoresis Yes Massage Yes Group Therapy for Yes Medicare Eval/Re-Eval Yes Aquatic Therapy Yes Frequency Times per week 2 Duration Number of Weeks 4-6 Addendums This patient is a No candidate for social or vocational rehab ? Patient/Guardian Yes verbally acknowledges understanding of treatment program and consents to further treatment? Patient/Guardian Yes verbally acknowledges understanding of diagnosis, prognosis and goals for treatment? Eval Complexity PT Charges 19693 - Low Complexity Shoulder/Elbow Eval Shoulder Objective Measurements Elbow Objective Measurements PHYSICIAN CERTIFICATION: I certify the specified therapy services for Mansoor Cruz are required, authorized, and reviewed every 30 days.
== END 2025-04-19 23:59 | disposition home or self-care (01) ==
LOC: PT 10:00
PROVIDERS: Visit Provider Internal Medicine
DX: M54.32 Sciatica, left side (principal); M54.31 Sciatica, right side
CPT/HCPCS: 97014; 97110; 97161; G0283

== ENCOUNTER 2025-06-13 16:47 | Outpatient (CLI) | payer MEDICARE, SELFPAY ==
--- NOTE | 2025-06-13 16:45 | MR_ITS ---
PROCEDURE INFORMATION: Exam: MR Cervical Spine Without and With Contrast Exam date and time: 06/13/2025 4:51 PM Age: 55 years old Clinical indication: Neck pain; Prior surgery; Surgery date: 6+ months; Surgery type: Fusion; Pain in right arm. Tingling in fingers; Additional info: Neck pain with radiation down right arm TECHNIQUE: Imaging protocol: Magnetic resonance imaging of the cervical spine without and with contrast. Contrast material: ISOVUE; Contrast volume: 18 ml; Contrast route: IV; COMPARISON: MR CERVICAL SPINE WO/W CON 05/18/2024 9:08 AM FINDINGS: Bones/joints: There is evidence for anterior cervical discectomy and fusion at C5-C6. There is moderate degenerative disc disease at C6-C7 with mild degenerative disc disease otherwise. No fracture. Normal alignment. Spinal cord: Normal signal. No cord compression. C2-C3: No significant disc bulge or herniation. No severe spinal canal stenosis. No significant neural foraminal narrowing. C3-C4: No significant disc bulge or herniation. No severe spinal canal stenosis. There is mild right foraminal stenosis secondary to uncovertebral joint arthropathy. C4-C5: No significant disc bulge or herniation. No severe spinal canal stenosis. No significant neural foraminal narrowing. C5-C6: No significant disc bulge or herniation. No severe spinal canal stenosis. No significant neural foraminal narrowing. C6-C7: No significant disc bulge or herniation. No severe spinal canal stenosis. No significant neural foraminal narrowing. C7-T1: No significant disc bulge or herniation. No severe spinal canal stenosis. No significant neural foraminal narrowing. T1-T2: T1-2: There is a small right paracentral disc protrusion with incomplete effacement of the ventral CSF space. Soft tissues: Unremarkable. Vasculature: Expected flow voids in the vertebral arteries. Other findings: No abnormal enhancement. IMPRESSION: 1. No acute findings. 2. No significant central canal or foraminal stenosis.
[2025-06-13] MEDS: SODIUM CHLORIDE 0.9% 10ML SYR (RAD ONLY) 10 ML IV (17:36)
[2025-06-13] MEDS: GADOTERIDOL INJ 20ML SYRINGE 18 ML IV (17:36)
== END 2025-06-13 23:59 | disposition home or self-care (01) ==
LOC: RAD 16:49
PROVIDERS: PCP Internal Medicine; Visit Provider Internal Medicine
DX: M54.12 Radiculopathy, cervical region (principal); Z98.890 Other specified postprocedural states
CPT/HCPCS: 72156; A9576